=== PATIENT | male | born 1955 | race Caucasian/White ===

== ENCOUNTER 2018-11-13 12:50 | Outpatient (CLI) | payer MEDICAID, SELFPAY ==
[2018-11-13 12:53] VITALS: BP 140/90; PULSE 65; RESP 22; TEMP 36.6; O2SAT 97
--- NOTE | 2018-11-13 13:28 | PDOC.PAIN ---
Pain Clinic Procedure Note Current Active Problems Problem Status Onset Lumbosacral spondylosis without myelopathy Acute Lumbar/Sacral Medial Branch Blocks COLE GONZALES has been referred to the [facility] for lumbar/sacral medial branch blocks. COMMENTS: I did review the notes from Ms. Dash from 10/24/18. Pre-procedure pain level to the right low back was 9.5/10. Patient was interviewed and the medical record reviewed. There were no medical, pharmacologic, radiographic or other structural contraindications to attempting fluoroscopically guided local anesthetic lumbar/sacral medial branch blocks. Risks and expected side effects as well as potential benefit of the procedure were reviewed and voiced concerns addressed. The printed consent form was signed and witnessed. Standard time-out procedure was performed. Patient was placed in the prone position on the fluoroscopy table and automated blood pressure cuff and pulse oximeter applied. The skin entry points for approaching the anatomic target points of the segmental medial branches of right L3-L5DR were identified with fluoroscopy and marked. Following thorough Chlorhexadine preparation of the skin and draping and 1% lidocaine infiltration of the skin entry points and subcutaneous tissues, a 22 gauge spinal needle was placed under fluoroscopic guidance down on to the target point for each respective segmental medial branch.Position was confirmed in A/P, oblique and lateral views with 0.25ml of omnipaque. At this point 0.5ml of 0.5% Bupivacaine was injected to each segmental nerve. Vital signs were stable throughout the procedure and were as recorded in the docflowsheet by the nursing staff. Follow up plans and appointments were discussed and was instructed to keep careful note of how the usual pain was modified by these injections. Specifically was asked to keep a pain diary for the next 24 hours using a numeric pain scale of 0-10 and report these results at the follow-up visit. Post procedure instruction was given as documented in the nursing documentation and having met discharge criteria. Patient was discharged from the [facility]. Based on the medial branches blocked today, if the patient has adequate relief and we are able to proceed to radiofrequency ablation, the treatment should result in the denervation of the right L4-L5 and L5-S1 FACET JOINTS. We would expect to denervate a total of 2 facets during the radiofrequency ablation. COMMENTS:His post-procedure pain level to the right low back was 0/10. He will call back with his 1-4 hour post-procedure pain levels to the right side of the low back. CC: Papo Puri
--- NOTE | 2018-11-13 13:30 | DI.RAD_ITS ---
SYMPTOMS/DIAGNOSIS: LUMBAR SPONDYLOSIS PAIN CLINIC LUMBAR SPINE: Fluoroscopy Time: 38.1 sec 19.05 mGy Fluoroscopy was utilized by Dr. August during the performance of a lumbar medial branch block. Please refer to the procedure report for complete details.
[2018-11-13 13:42] VITALS: BP 159/90; PULSE 72; RESP 22; O2SAT 97
[2018-11-13] MEDS: Bupivacaine 0.5% Pres-Free 30 ML VIAL IJ (13:42)
[2018-11-13] MEDS: Omnipaque 240 MG/ML 50 ML BTL IJ (13:43)
== END 2018-11-13 13:10 ==
PROVIDERS: PCP Specialist/Technologist Athletic Trainer; Visit Provider Preventive Medicine Occupational Medicine
DX: M47.817 Spondylosis without myelopathy or radiculopathy, lumbosacral region (principal)
CPT/HCPCS: 64493; 64494; 72100; Q9967

== ENCOUNTER 2018-12-06 14:37 | Outpatient (REF) | payer MEDICAID, SELFPAY ==
[2018-12-06 22:03] LABS: HCT 43.1 % (40.0-50.0); HGB 14.4 g/dL (13.5-17.5)
[2018-12-06 22:27] LABS: Anion Gap 8.6 mmol/L (3-11); BUN 22 mg/dL (7-18); CO2 25.4 mmol/L (21.0-32.0); CREATININE 1.39 mg/dL (0.70-1.30); Calcium 9.4 mg/dL (8.5-10.1); Chloride 103 mmol/L (98-107); Cholesterol 137 mg/dL (50-200); Estimated GFR 51.61 (mL/min/1.73m2); Glucose 105 mg/dL (70-100); HDL Cholesterol 27 mg/dL (40-60); LDL CHOLESTEROL 65 mg/dL (<100); Potassium 4.4 mmol/L (3.5-5.1); Sodium 137 mmol/L (136-145); Triglyceride 466 mg/dL (30-150)
== END 2018-12-06 14:57 ==
LOC: NCHCN 14:37
PROVIDERS: PCP Specialist/Technologist Athletic Trainer; Visit Provider Specialist/Technologist Athletic Trainer
DX: I25.10 Atherosclerotic heart disease of native coronary artery without angina pectoris (principal); I10 Essential (primary) hypertension; E78.5 Hyperlipidemia, unspecified; Z51.81 Encounter for therapeutic drug level monitoring
CPT/HCPCS: 80048; 80061; 83721; 83735; 85014; 85018

== ENCOUNTER 2018-12-12 12:59 | Outpatient (CLI) | payer MEDICAID, SELFPAY ==
--- NOTE | 2018-12-12 06:00 | DI.RAD_ITS ---
SYMPTOM/DIAGNOSIS: LUMBAR SPONDYLOSIS PAIN CLINIC: Fluoroscopy Time: 29.8 SECONDS Fluoroscopy was utilized by Dr. Warren during the performance of a lumbar medial branch block. Please refer to the procedure report for complete details.
[2018-12-12 13:05] VITALS: BP 154/97; PULSE 71; RESP 22; TEMP 36.6; O2SAT 94
[2018-12-12] MEDS: Lidocaine 2% Pres-Free 5 ML VIAL IJ (13:42)
[2018-12-12] MEDS: Omnipaque 240 MG/ML 50 ML BTL IJ (13:42)
--- NOTE | 2018-12-12 13:42 | PDOC.PAIN ---
Pain Clinic Procedure Note Current Active Problems Problem Status Onset Lumbosacral spondylosis without myelopathy Acute Lumbar/Sacral Medial Branch Blocks COLE GONZALES has been referred to the [facility] for lumbar/sacral medial branch blocks. COMMENTS: The patient had good relief from first medial branch block with bupivacaine Patient was interviewed and the medical record reviewed. There were no medical, pharmacologic, radiographic or other structural contraindications to attempting fluoroscopically guided local anesthetic lumbar/sacral medial branch blocks. Risks and expected side effects as well as potential benefit of the procedure were reviewed and voiced concerns addressed. The printed consent form was signed and witnessed. Standard time-out procedure was performed. Patient was placed in the prone position on the fluoroscopy table and automated blood pressure cuff and pulse oximeter applied. The skin entry points for approaching the anatomic target points of the segmental medial branches of {right L3, 4, 5} were identified with an fluoroscopy and marked. Following thorough Chlorhexadine preparation of the skin and draping and 1% lidocaine infiltration of the skin entry points and subcutaneous tissues, a 5 inch22 gauge spinal needle was placed under fluoroscopic guidance down on to the target point for each respective segmental medial branch.Position was confirmed in A/P, oblique and lateral views with 0.25ml of omnipaque 240. At each point .5ml 2% lidocaine was injected. Vital signs were stable throughout the procedure and were as recorded in the docflowsheet by the nursing staff. Follow up plans and appointments were discussed and was instructed to keep careful note of how the usual pain was modified by these injections. Specifically was asked to keep a pain diary for the next 24 hours using a numeric pain scale of 0-10 and report these results at the follow-up visit. Post procedure instruction was given as documented in the nursing documentation and having met discharge criteria. Patient was discharged from the [facility]. Based on the medial branches blocked today, if the patient has adequate relief and we are able to proceed to radiofrequency ablation, the treatment should result in the denervation of the {right L4-5, L5-S1 FACET JOINTS}. We would expect to denervate a total of {2} facets during the radiofrequency ablation. COMMENTS:Pain went from 06/11-10/11. He will follow-up for radiofrequency ablation if he meets criteria. CC: Papo Puri
[2018-12-12 13:52] VITALS: BP 163/90; PULSE 74; RESP 20; O2SAT 96
== END 2018-12-12 13:19 ==
PROVIDERS: PCP Specialist/Technologist Athletic Trainer; Visit Provider Anesthesiology Pain Medicine
DX: M47.817 Spondylosis without myelopathy or radiculopathy, lumbosacral region (principal)
CPT/HCPCS: 64493; 64494; 64495; 72100; 80048; 80061; 83721; 83735; 85014; 85018; Q9967

== ENCOUNTER 2019-01-01 07:48 | Outpatient (CLI) | payer MEDICAID, SELFPAY ==
[2019-01-01 07:58] VITALS: BP 145/82; PULSE 60; RESP 22; TEMP 36.2; O2SAT 97
[2019-01-01] MEDS: Lactated Ringers 1,000 ML 80 ML IV (08:27)
[2019-01-01] MEDS: Midazolam 2 MG/2 ML VIAL IVP (08:30)
[2019-01-01] MEDS: fentaNYL 100 MCG/2 ML VIAL IVP (08:30)
[2019-01-01 08:54] VITALS: BP 152/84; PULSE 66; RESP 16; O2SAT 93
--- NOTE | 2019-01-01 08:57 | PDOC.PAIN ---
Pain Clinic Procedure Note Current Active Problems Problem Status Onset Lumbosacral spondylosis without myelopathy Acute LUMBAR/SACRAL MEDIAL BRANCH RADIOFREQUENCY WITH THE [employer] MACH[employer] COLE GONZALES has been referred to the [facility] for radiofrequency treatment of chronic axial back pain. COLE has had long standing back pain thought to be facet joint generated and which has been refractory to other therapies. Local anesthetic medial branch blocks or intra-articular facet joint injections resulted in COLE reporting reduction of the usual axial component of pain for at least the duration of the local anesthetic effect. COMMENTS: He did exceedingly well with the LMBBs Patient was interviewed and the medical record reviewed. There were no medical, pharmacologic, radiographic or other structural contraindications to attempting fluoroscopically guided radiofrequency treatment. Risks and expected side effects as well as potential benefit of the procedure were reviewed and voiced concerns addressed. The printed consent form was signed and witnessed. Standard time-out procedure was performed. Patient was placed in the prone position on the fluoroscopy table and automated blood pressure cuff and pulse oximeter applied. The skin entry points for approaching the anatomic target points of the segmental medial branches of right L3-S1 were identified with fluoroscopy and marked. Following thorough Chlorhexadine preparation of the skin and draping and 1% lidocaine infiltration of the skin entry points and subcutaneous tissues, a single 18 guage curved 10 cm 10mm active tip radiofrequency cannula was placed under fluoroscopic guidance along or across the anatomic course of each respective segmental medial branch. Each placement was stimulated at 50Hz and les then 0.5V for medial branch sensory localization and the at 2Hz and up to 3 times the sensory voltage without any evidence of distal myotomal stimulation. 1cc of 1% ;idocaine was injected at each site. At each placement a continuous mode radiofrequency treatment was done at 80 degrees C for 90secs. This radiofrequency treatment should result in the denervation of the right L4-L5 and L5-S1 FACET JOINTS}.~ A total of 2 facets were expected to be denervated from today's treatment. Vital signs were stable throughout the procedure and were as recorded in the docflowsheet by the nursing staff. If given, dosages of intravenous drugs for anxiolysis and analgesia were documented in the Medication Administration Record (MAR). Follow up plans and appointments were discussed. Post procedure instruction was given as documented in the nursing documentation and having met discharge criteria, COLE was discharged from the [facility]. COMMENTS: This can be repeated without the LMBBs if he gets at least 6 months of relief CC: Papo Puri
[2019-01-01] MEDS: methylPREDNISolone ACETATE 40 MG/ML VIAL IJ (09:09)
[2019-01-01] MEDS: Bupivacaine 0.5% Pres-Free 10 ML VIAL IJ (09:09)
[2019-01-01] MEDS: Lidocaine 2% Pres-Free 5 ML VIAL IJ (09:09)
--- NOTE | 2019-01-01 10:17 | DI.RAD_ITS ---
SYMPTOMS/DIAGNOSIS: LUMBAR SPONDYLOSIS PAIN CLINIC: Fluoroscopy Time: 49.9sec, 31.12mGY Images submitted from the pain clinic demonstrate needle positioning over the right side in the lower lumbar spine at L 4 - 5 in conjunction with an injection carried out by Dr. August. Please see the procedure report for further information.
== END 2019-01-01 08:08 ==
PROVIDERS: PCP Specialist/Technologist Athletic Trainer; Visit Provider Preventive Medicine Occupational Medicine
DX: M47.817 Spondylosis without myelopathy or radiculopathy, lumbosacral region (principal)
CPT/HCPCS: 64635; 64636; 72100; J1030; J2250; J3010

== ENCOUNTER 2019-05-23 12:41 | Outpatient (CLI) | payer MEDICAID, SELFPAY ==
[2019-05-23 12:48] VITALS: BP 151/88; PULSE 67; RESP 22; TEMP 37.1; O2SAT 96
[2019-05-23] MEDS: Omnipaque 240 MG/ML 50 ML BTL IJ (13:25)
[2019-05-23] MEDS: methylPREDNISolone ACETATE 40 MG/ML VIAL IM (13:26)
--- NOTE | 2019-05-23 13:32 | DI.RAD_ITS ---
SYMPTOMS/DIAGNOSIS: LUMBAR RADICULOPATHY PAIN CLINIC LUMBAR SPINE: Fluoroscopy Time: 29.8 sec., 19.56 mGy Fluoroscopy is utilized by Dr. August during the performance of a lumbar epidural steroid injection. Please refer to the procedure report for complete details.
[2019-05-23 13:33] VITALS: BP 179/85; PULSE 64; RESP 20; O2SAT 96
--- NOTE | 2019-05-23 13:36 | PDOC.PAIN ---
Pain Clinic Procedure Note Current Active Problems Problem Status Onset Lumbosacral radiculopathy Lumbar Epidural Steroid Injection Procedure Note COMMENTS: Right sided low back and leg pain. I reviewed the previous notes and his most recent lumbar spine MRI. COLE GONZALES has been referred to the [facility] for lumbar epidural steroid injection. The patient was greeted by the nurse who verified patients name and . Patient was then taken to the fluoroscopy suite. The patient was interviewed and the medial record reviewed. There were no medical, pharmacologic, radiographic, or other structural contraindications to attempting fluoroscopically guided lumbar epidural steroid injection. Risks and expected side effects as well as potential benefits of the procedure were reviewed and voiced concerns expressed. The patient consent form was signed and witnessed. Standard patient time-out procedure was performed. The patient was placed in the prone position on the fluoroscopy table and automated blood pressure cuff and pulse oximeter applied. The skin entry point for entering/approaching the epidural space at the right side of the L4-L5 interspace and marked. Following thorough chlorhexadine preparation of the skin and draping and 1% lidocaine infiltration of the skin entry point and subcutaneous tissues, a 18 gauge Touhy needle was placed under fluoroscopic guidance and with loss of resistance technique into the epidural space. Needle tip placement and depth were aided and confirmed by fluoroscopy. There was no paresthesia or return of blood or CSF through the needle. 1 cc's of Omnipaque 240 was injected with clear epidural spread confirmed with fluoroscopy. 80mg depomedrol was injected. There was not any unusual discomfort expressed by COLE GONZALES. Patient's vital signs were stable throughout the procedure and were as recorded in nursing records. Follow up plans and appointments were discussed with patient. Post procedure instruction was given as documented in nursing records and having met discharge criteria and was discharged from the [facility]. COMMENTS: If this procedure is helpful, it can be completed up to 3 times per 12 months.
== END 2019-05-23 13:01 ==
PROVIDERS: PCP Specialist/Technologist Athletic Trainer; Visit Provider Preventive Medicine Occupational Medicine
DX: M54.17 Radiculopathy, lumbosacral region (principal)
CPT/HCPCS: 62323; 72100; J1030; Q9967

== ENCOUNTER 2019-05-29 02:03 | Outpatient (CLI) | payer MEDICAID, SELFPAY ==
--- NOTE | 2019-05-29 13:20 | DIABASSESS_ITS ---
DESCRIPTION/ASSESSMENT: Bala Lemus presents for weight management in light of newly diagnosed type 2 diabetes with his who prepares the meals. He shops with her and is highly involved in food purchasing. Mr. Lemus reports a weight gain of 30 pounds over the past 2.5 years. He loves his candy and chips and believes he over consumed them along with decreasing his physical activity secondary to shoulder and back pain. He loves pasta and dislikes 'cow food' i.e. greens. Since seeing his provider, he has started eating fish in place of some beef. He has eggs, sausage and home fries for breakfast; muffin with coffee and has cut his portions 'dramatically'; he often skips lunch. Last night he had chicken patties and potato salad. He can list a few vegetables he will eat, and he likes fruit. His voices support for his cutting back on bread, pasta and sweets, but he challenges her on this. Mr. Lemus is not physically active secondary to his back and shoulder. He has been receiving steroid shots for his back. He feels it is getting better but has difficulty walking. He feels ready to go back to work despite not being 100%. He manages diabetes with Metformin 500mg daily and has blood pressure medication and aspirin. INTERVENTION: Mr. Lemus has been watching Dr. Winston and is finding some helpful information there. Reviewed diabetes food guide to offer options to decrease calories and carbohydrate to improve glycemic control. Discussed low salt for blood pressure. Discussed ways to increase the vegetables he likes. He declines a glucometer today stating he will never prick his finger. Discussed physical activity as a part of weight management diabetes. ACTION PLAN: He will consider increasing non-carbohydrate choices. He will explore cardiac rehab for physical exercise Individual MNT ____ units billed TIME IN: OUT: No DM group education series being offered at this time.
== END 2019-05-29 02:23 ==
PROVIDERS: PCP Specialist/Technologist Athletic Trainer; Visit Provider Dietitian, Registered
DX: E11.9 Type 2 diabetes mellitus without complications (principal); Z71.3 Dietary counseling and surveillance; Z79.84 Long term (current) use of oral hypoglycemic drugs; E66.8 Other obesity
CPT/HCPCS: 97802

== ENCOUNTER 2019-09-17 12:25 | Outpatient (RCR) | payer SELFPAY ==
--- NOTE | 2019-09-03 11:21 | PR3E_ITS ---
64 year old male who started the Cardiac Rehab maintenance phase after cardiology referral for cardiac risks. PMH: [place] (July 2016), HTN, HLD, ASCVD, Obesity, former smoker quit 2015, gastric ulcer, chronic back pain. First day of maintenance program was 09/03/19- Resting BP 140/81 w/ HR 76 bpm. Weight 273, HT 68in. Tolerated 14 minutes of exercise using the treadmill, and UBE. Chronic back pain limits duration of activity. HR with exercise ranged 75- 78, BPs 154-169/86-95. SOL RPE ratings appropriate at 11 per activity. Mr. Lemus plans to continue exercising regularly with our program, two days per week at 8am. We will continue to monitor, guide, and progress him as tolerated.
== END 2019-10-01 23:59 | disposition home or self-care (01) ==
LOC: CR 12:25
PROVIDERS: PCP Specialist/Technologist Athletic Trainer; Visit Provider Family Medicine
DX: Z51.89 Encounter for other specified aftercare (principal)

== ENCOUNTER 2019-10-01 13:41 | Outpatient (CLI) | payer MEDICAID, SELFPAY ==
[2019-10-01 13:48] VITALS: BP 131/81; PULSE 78; RESP 24; TEMP 36.8; O2SAT 94
[2019-10-01 14:31] VITALS: BP 138/85; PULSE 79; RESP 22; O2SAT 92
--- NOTE | 2019-10-01 14:35 | PDOC.PAIN ---
Pain Clinic Procedure Note Procedure Note Procedure Note: Lumbar Epidural Steroid Injection Procedure Note pre-operative diagnosis: lumbar radiculopathy post-operative diagnosis: same as above Comment: patient received L4-5 LESI in the past that helped relieve his right leg pain. Today, he reports back and left leg pain that is affecting posterior left calf. He returns for repeat LESI. COLE GONZALES has been referred to the [facility] for lumbar epidural steroid injection. The patient was greeted by the nurse who verified patients name and . Patient was then taken to the fluoroscopy suite. The patient was interviewed and the medial record reviewed. There were no medical, pharmacologic, radiographic, or other structural contraindications to attempting fluoroscopically guided lumbar epidural steroid injection. Risks and expected side effects as well as potential benefits of the procedure were reviewed and voiced concerns expressed. The patient consent form was signed and witnessed. Standard patient time-out procedure was performed. The patient was placed in the prone position on the fluoroscopy table and automated blood pressure cuff and pulse oximeter applied. The skin entry point for entering/approaching the epidural space by a L5-S1 and marked. Following thorough chlorhexadine preparation of the skin and draping and 1% lidocaine infiltration of the skin entry point and subcutaneous tissues, a 17 gauge 5'' Touhy needle (due to body habitus) was placed under fluoroscopic guidance and with loss of resistance technique into the epidural space. Needle tip placement and depth were aided and confirmed by fluoroscopy. There was no paresthesia or return of blood or CSF through the needle. 2 cc's of Omnipaque 240 was injected with clear epidural spread confirmed with fluoroscopy. 80mg depomedrol was injected. Then additional 0.5cc of preservative free 1% lidocaine and 2cc of preservative free normal saline was injected to flush the steroid out of the Touhy needle. There was not any unusual discomfort expressed by COLE GONZALES. Patient's vital signs were stable throughout the procedure and were as recorded in nursing records. Follow up plans and appointments were discussed with patient. Post procedure instruction was given as documented in nursing records and having met discharge criteria and was discharged from the [facility]. COMMENTS: If this procedure is helpful, it can be completed up to 3 times per 12 months. L5-S1 with left paramedian approach was chosen today due to patient's left posterior calf and leg pain. I personally performed the entire procedure. Mary Narayanan MD Pain Management
[2019-10-01] MEDS: methylPREDNISolone ACETATE 80 MG/ML VIAL IJ (14:40)
[2019-10-01] MEDS: Omnipaque 240 MG/ML 50 ML BTL IJ (14:40)
--- NOTE | 2019-10-01 14:40 | DI.RAD_ITS ---
EXAM: XR PAIN CLINIC LUMBAR SP 2V CLINICAL HISTORY: Dx: Lumbar Radiculopathy TECHNIQUE: C-arm fluoroscopy was utilized by Dr. Narayanan during lumbar epidural injection. COMPARISON: No exams were available for comparison FINDINGS: Hard copies show epidural injection at what appears to be the L5-S1 level. 61.9 seconds fluoro time.
== END 2019-10-01 14:01 ==
PROVIDERS: PCP Specialist/Technologist Athletic Trainer; Visit Provider Internal Medicine
DX: M54.16 Radiculopathy, lumbar region (principal)
CPT/HCPCS: 62323; 72100; J1040; Q9967

== ENCOUNTER 2019-10-02 04:22 | Outpatient (RCR) | payer SELFPAY | END 2019-11-01 23:59 | disposition home or self-care (01) | LOC: CR 04:22 | PROVIDERS: PCP Specialist/Technologist Athletic Trainer; Visit Provider Family Medicine | DX: Z51.89 Encounter for other specified aftercare (principal) ==

== ENCOUNTER 2019-11-02 04:07 | Outpatient (RCR) | payer SELFPAY ==
--- NOTE | 2019-11-28 11:11 | PR3E_ITS ---
64 year old male joined the maintenance phase of cardiac rehabilitation on September 03, 2019 after being referred for cardiac history/risk factors: [place] 2016, HTN, ASCVD, obesity. The patient attended 5 classes in September. The patient is being discharged from the program at this time due to ongoing medical issues; back pain. Will assist patient in re-enrolling in the program and obtaining proper referrals in the future should he want to return.
== END 2019-11-30 23:59 | disposition home or self-care (01) ==
LOC: CR 04:07
PROVIDERS: PCP Specialist/Technologist Athletic Trainer; Visit Provider Family Medicine
DX: Z51.89 Encounter for other specified aftercare (principal)

== ENCOUNTER 2019-12-20 10:56 | Outpatient (REF) | payer MEDICAID, SELFPAY ==
[2019-12-20 18:57] LABS: Anion Gap 10.3 mmol/L (3-11); BUN 17 mg/dL (7-18); CO2 24.7 mmol/L (21.0-32.0); CREATININE 1.21 mg/dL (0.70-1.30); Calcium 9.5 mg/dL (8.5-10.1); Calculated LDL 47 mg/dL (<100); Chloride 103 mmol/L (98-107); Cholesterol 121 mg/dL (<200); Glucose 110 mg/dL (74-106); HDL Cholesterol 27 mg/dL (40-60); Potassium 4.9 mmol/L (3.5-5.1); Sodium 138 mmol/L (136-145); Triglyceride 238 mg/dL (<150)
== END 2019-12-20 11:16 ==
LOC: NCHCN 10:56
PROVIDERS: PCP Nurse Practitioner Family; Visit Provider Nurse Practitioner Family
DX: R73.09 Other abnormal glucose (principal); I10 Essential (primary) hypertension; E78.5 Hyperlipidemia, unspecified; I25.2 Old myocardial infarction
CPT/HCPCS: 80048; 80061

== ENCOUNTER 2020-03-06 01:25 | Outpatient (CLI) | payer MEDICAID, SELFPAY ==
--- NOTE | 2020-03-06 | DI.CTLCSR_ITS ---
EXAM: CT CHEST LUNG CANCER SCREEN CLINICAL HISTORY: SCREENING FOR CANCER, Z12.9, FORMER SMOKER TECHNIQUE: COMPARISON: No exams were available for comparison FINDINGS: CT examination the chest was performed utilizing low-dose non contrast screening protocol. Images obtained through the upper abdomen show unremarkable appearance of visualized portions of the liver and spleen. Note is made of coronary artery calcifications. No mediastinal or hilar adenopathy. Tracheobronchia l tree appears intact. There are mild diffuse centrilobular pulmonary emphysematous changes. No pulmonary nodule identified . Mild linear scarring noted predominantly in the lung bases. No pleural effusion seen. IMPRESSION: Negative LDCT, no pulmonary nodule identified. Routine annual screening recommended. Lung RADS Cat 1 - Negative: No nodules and definitely benign nodules
== END 2020-03-06 01:45 ==
PROVIDERS: PCP Nurse Practitioner Family; Visit Provider Nurse Practitioner Family
DX: Z12.2 Encounter for screening for malignant neoplasm of respiratory organs (principal); Z87.891 Personal history of nicotine dependence; J43.8 Other emphysema
CPT/HCPCS: G0297

== ENCOUNTER 2020-03-31 12:43 | Outpatient (CLI) | payer MEDICAID, SELFPAY ==
[2020-03-31 12:53] VITALS: BP 137/74; PULSE 73; RESP 20; TEMP 36.4; O2SAT 95
--- NOTE | 2020-03-31 12:53 | PDOC.PAIN ---
Pain Clinic Procedure Note Procedure Note Procedure Note: Lumbar Epidural Steroid Injection Procedure Note COMMENTS: patient underwent L4-[address] August in the past which provided 100% pain relief lasting a couple of weeks followed by 80% of 2 months. His most recent injection was L5-S1 LESI based on symptomatology, which unfortunately did not result in any significant pain relief. He is here for a repeat L4-5 LESI. Pre-operative diagnosis: lumbar radiculopathy Post-operative diagnosis: same as above COLE GONZALES has been referred to the [facility] for lumbar epidural steroid injection. The patient was greeted by the nurse who verified patients name and . Patient was then taken to the fluoroscopy suite. The patient was interviewed and the medial record reviewed. There were no medical, pharmacologic, radiographic, or other structural contraindications to attempting fluoroscopically guided lumbar epidural steroid injection. Risks and expected side effects as well as potential benefits of the procedure were reviewed and voiced concerns expressed. The patient consent form was signed and witnessed. Standard patient time-out procedure was performed. The patient was placed in the prone position on the fluoroscopy table and automated blood pressure cuff and pulse oximeter applied. The skin entry point for entering/approaching the epidural space by a L4-5 and marked. Following thorough chlorhexadine preparation of the skin and draping and 1% lidocaine infiltration of the skin entry point and subcutaneous tissues, a 17 gauge 5'' Touhy needle was placed under fluoroscopic guidance and with loss of resistance technique into the epidural space. Needle tip placement and depth were aided and confirmed by fluoroscopy. There was no paresthesia or return of blood or CSF through the needle. 1 cc's of Omnipaque 240 was injected with clear epidural spread confirmed with fluoroscopy. 80mg depomedrol was injected. This is followed by 0.5cc of preservative free 1% lidocaine and 1cc of preservative free normal saline. There was not any unusual discomfort expressed by COLE GONZALES. Patient's vital signs were stable throughout the procedure and were as recorded in nursing records. Follow up plans and appointments were discussed with patient. Post procedure instruction was given as documented in nursing records and having met discharge criteria and was discharged from the [facility] Management Center. COMMENTS: If this procedure is helpful, it can be completed up to 3 times per 12 months. please note patient has thickened ligamentum flavun at L4-5 interspace. Due to patient's body habitus, a 17 gauge 5'' Touhy needle was used. I personally performed the entire procedure. Mary Narayanan MD Pain Management
[2020-03-31] MEDS: methylPREDNISolone ACETATE 80 MG/ML VIAL IJ (13:21)
[2020-03-31] MEDS: Omnipaque 240 MG/ML 50 ML BTL IJ (13:21)
[2020-03-31 13:27] VITALS: BP 155/84; PULSE 75; RESP 17; O2SAT 97
--- NOTE | 2020-03-31 13:28 | DI.RAD_ITS ---
EXAM: XR PAIN CLINIC LUMBAR SP 2V CLINICAL HISTORY: Dx: Lumbar Radiculopathy TECHNIQUE: 2D and realtime digital imaging was performed. CONTRAST MATERIAL: Refer to procedure report. COMPARISON: No exams were available for comparison FINDINGS: Fluoroscopy was provided for Dr. Narayanan during the performance of a epidural lumbar injection. Please r efer to the procedure report for complete details. Fluoro time: 37.8 seconds IMPRESSION:
== END 2020-03-31 13:03 ==
PROVIDERS: PCP Nurse Practitioner Family; Visit Provider Internal Medicine
DX: M54.16 Radiculopathy, lumbar region (principal)
CPT/HCPCS: 62323; 72100; J1040; Q9967

== ENCOUNTER 2020-08-11 09:47 | Outpatient (REF) | payer MEDICAID, SELFPAY ==
[2020-08-11 19:41] LABS: Anion Gap 11.2 mmol/L (3-11); BUN 15 mg/dL (7-18); CO2 23.8 mmol/L (21.0-32.0); CREATININE 1.27 mg/dL (0.70-1.30); Calcium 9.4 mg/dL (8.5-10.1); Chloride 105 mmol/L (98-107); Estimated GFR 56.92 (mL/min/1.73m2); Glucose 131 mg/dL (74-106); Potassium 4.6 mmol/L (3.5-5.1); Sodium 140 mmol/L (136-145)
== END 2020-08-11 10:07 ==
LOC: NCHCN 09:47
PROVIDERS: PCP Nurse Practitioner Family; Visit Provider Nurse Practitioner Family
DX: Z00.00 Encounter for general adult medical examination without abnormal findings (principal); E11.9 Type 2 diabetes mellitus without complications
CPT/HCPCS: 80048

== ENCOUNTER 2020-10-28 14:23 | Outpatient (REF) | payer MEDICAID, SELFPAY ==
[2020-10-28 21:12] LABS: ALT 60 U/L (16-63); AST 47 U/L (15-37); Calculated LDL 47 mg/dL (<100); Cholesterol 140 mg/dL (<200); HDL Cholesterol 29 mg/dL (40-60); Triglyceride 320 mg/dL (<150)
[2020-10-28 21:22] LABS: Creatine Kinase 136 U/L (39-308)
== END 2020-10-28 14:43 ==
LOC: NCHCN 14:23
PROVIDERS: PCP Nurse Practitioner Family; Visit Provider Nurse Practitioner Family
DX: E78.5 Hyperlipidemia, unspecified (principal)
CPT/HCPCS: 80061; 82550; 84450; 84460

== ENCOUNTER 2020-11-18 10:20 | Outpatient (REF) | payer MEDICAID, SELFPAY ==
[2020-11-18 16:10] LABS: HCT 42.1 % (40.0-50.0); MCH 28.9 pg (27.0-33.0); MCHC 33.3 % (32.0-36.0); MPV 11.7 fL (8.0-11.0); Platelet Count 196 10^3/uL (130-400); RBC 4.84 10^6/uL (4.36-5.78); RDW 13.2 % (11.8-14.1); RDW-SD 41.6 fL; WBC 6.33 10^3/uL (4.4-10.8)
[2020-11-18 16:20] LABS: Anion Gap 13.2 mmol/L (3-11); BUN 18 mg/dL (7-18); CO2 21.8 mmol/L (21.0-32.0); CREATININE 1.1 mg/dL (0.70-1.30); Calcium 9.4 mg/dL (8.5-10.1); Chloride 104 mmol/L (98-107); Glucose 131 mg/dL (74-106); Potassium 4.7 mmol/L (3.5-5.1); Sodium 139 mmol/L (136-145)
[2020-11-18 16:41] LABS: Hemoglobin A1C 7.3 % (<5.7)
== END 2020-11-18 10:21 | disposition home or self-care (01) ==
LOC: NCHCN 10:20
PROVIDERS: PCP Nurse Practitioner Family; Visit Provider Nurse Practitioner Family
DX: E11.9 Type 2 diabetes mellitus without complications (principal); Z01.818 Encounter for other preprocedural examination; I10 Essential (primary) hypertension
CPT/HCPCS: 80048; 85027; 83036

== ENCOUNTER 2020-12-30 02:58 | Outpatient (CLI) | payer MEDICAID, SELFPAY ==
[2020-12-30 10:40] LABS: Source Nasal/Nares
[2020-12-30 14:53] LABS: COVID-19 PCR Negative (Negative)
== END 2020-12-30 02:59 | disposition home or self-care (01) ==
LOC: LBO 02:58
PROVIDERS: PCP Nurse Practitioner Family; Visit Provider Family Medicine
DX: Z20.822 Contact with and (suspected) exposure to COVID-19 (principal); Z01.818 Encounter for other preprocedural examination
CPT/HCPCS: 87635

== ENCOUNTER 2020-12-31 03:31 | Outpatient (CLI) | payer MEDICARE, MEDICAID, SELFPAY ==
[2020-12-31] MEDS: Methacholine 100 MG VIAL IH (15:15)
[2020-12-31] MEDS: Inhaler, Assist Device 1 EACH MC (15:16)
[2020-12-31] MEDS: Albuterol HFA 18 GM 200 PUFF INH IH (15:16)
--- NOTE | 2021-01-04 09:00 | W.PFT ---
Date of service: 12/31/20 Time of Service: 01:10 Pulmonary Function Test Result Interpretation Spirometry: Mild obstructive airways disease, no bronchodilator testing was carried out Lung Volumes: No evidence of restriction Diffusion Capacity: Moderately reduced, mildly reduced when corrected to alveolar volume Airway Pressure: Normal Impression Mild obstructive airways disease, no bronchodilator testing was carried out, this is associated with moderate diffusion defect Clinical Correlation therefore is recommended.
== END 2020-12-31 03:32 | disposition home or self-care (01) ==
PROVIDERS: PCP Nurse Practitioner Family; Visit Provider Nurse Practitioner Family
DX: J44.9 Chronic obstructive pulmonary disease, unspecified (principal); R06.09 Other forms of dyspnea; Z87.891 Personal history of nicotine dependence
CPT/HCPCS: 94060; 94726; 94729; 95070; 94010; J7674

== ENCOUNTER 2021-05-26 16:41 | Outpatient (REF) | payer MEDICARE, MEDICAID, SELFPAY ==
[2021-05-26 22:48] LABS: D-Dimer 2649 ng/mlFEU (<500)
== END 2021-05-26 16:42 | disposition home or self-care (01) ==
LOC: NCHCN 16:41
PROVIDERS: PCP Nurse Practitioner Family; Visit Provider Nurse Practitioner Family
DX: M25.561 Pain in right knee (principal); R22.41 Localized swelling, mass and lump, right lower limb; M79.89 Other specified soft tissue disorders
CPT/HCPCS: 85379

== ENCOUNTER 2021-08-11 01:06 | Outpatient (CLI) | payer MEDICARE, MEDICAID, SELFPAY ==
--- NOTE | 2021-08-11 10:45 | DI.MRI_ITS ---
Exam(s) MR LOWER JOINT RT WO EXAM: MR LOWER JOINT RT WO CLINICAL HISTORY: RT KNEE PAIN M25.561 TECHNIQUE: Multiplanar multisequence MRI of the right knee was performed. COMPARISON: No exams were available for comparison FINDINGS: EFFUSION: There is a large joint effusion. There is also a Schafer cyst in the medial popliteal fossa which measures approximately 6 cm cephalocaudal length by 1 cm wide and is probably ruptured given th at there is some fluid leakage down the medial aspect of the gastrocnemius muscle. MARROW:There is no evidence of fracture. Some bone contusion signal is evident in the medial compart ment as as described below.. There are no significant osseous lesions. PATELLOFEMORAL COMPARTMENT: Quadriceps tendon is intact. Mild increased signal is noted in the infer ior aspect of the patellar ligament but no high-grade tear. Mild subcutaneous edema is seen anterior to the patellar ligament. There is a surface defect at the mid aspect of the retropatellar cartilage which measures 8 millimete rs wide by 1 millimeter deep. This does not extend through the entire thickness of the cartilage, th e thickness of the cartilage being 5-6 millimeters at this level. Remainder of the cartilage appears unremarkable.No abnormal intraosseous signal in the patella. No degenerative subarticular cysts. N o patellar retinacular tears. No intraosseous signal to suggest recent patellar dislocation. CRUCIATE LIGAMENTS: The anterior cruciate ligament is intact.The posterior cruciate ligament is intac t. MEDIAL COMPARTMENT/MEDIAL MENISCUS: There is complex tear of the posterior horn of the medial meniscu s. There is both oblique and vertical tearing in the outer 3rd. Also tearing 1.5 cm in from the wilbert t with significant thinning at this level. There is some extrusion of the posterior horn but not joshua cent into the para tibial gutter.The anterior horn appears intact but mild extrusion.. There is subjacent mild bone edema in the tibial plateau and overlying medial femoral condyle (outer half). There is moderate cartilage thinning over this region of the medial femoral condyle. No true osteochondral defect. MEDIAL COLLATERAL LIGAMENT: There is abnormal signal seen within the inner-deep component of the MCL immediately contiguous to the torn meniscus. The more superficial-outer aspect of the MCL is intact. There is a small amount of fluid in the bursa between the 2 components of the MCL. LATERAL COMPARTMENT/LATERAL MENISCUS: There is no evidence of lateral meniscal tear.There are no rogers dral defects, osteochondral defects, subarticular marrow edema, nor osteophytes evident. ILIOTIBIAL BAND: Intact LATERAL COLLATERAL LIGAMENT COMPLEX: The fibular collateral ligament is intact. The biceps femoris t endon is intact.Popliteus muscle and tendon are intact. IMPRESSION: 1. There is a complex tear of the posterior horn of the medial meniscus as described above. This ext ends towards but does not appear to significantly involve the anterior horn. There is some extrusion of the torn component of the posterior horn but no descent into the para tibial gutter. There is no meniscocapsular separation although there does appear to be some signal abnormality in the contiguou s deeper component of the MCL (the superficial component of the MCL is unremarkable). There is mild- moderate cartilage change room attendant the main weight-bearing surface of the medial femoral condyle and mild subarticular intraosseous edema at this level. However, there is no true osteochondral defect. 2. Lateral compartment appears unremarkable. 3. Anterior posterior cruciate ligaments are intact, as is the iliotibial band and lateral collateral ligament complex. 4. There is a surface irregularity in retropatellar cartilage which is approximately 1 millimeter leobardo p an 8 millimeters wide, not extending through the 5 millimeter thickness of the retropatellar cartil age and not associated with abnormal signal in the patella. 5. There is a joint effusion and there is also a Schafer cyst as described above which is partially ru ptured, with some fluid leakage down the medial head gastrocnemius muscle. DATA REPOSITORY:
== END 2021-08-11 01:26 ==
PROVIDERS: PCP Nurse Practitioner Family; Visit Provider Nurse Practitioner Family
DX: M25.561 Pain in right knee (principal); M25.461 Effusion, right knee; M71.21 Synovial cyst of popliteal space [Baker], right knee; S83.241A Other tear of medial meniscus, current injury, right knee, initial encounter
CPT/HCPCS: 73721

== ENCOUNTER 2021-08-24 08:43 | Outpatient (CLI) | payer MEDICARE, MEDICAID, SELFPAY ==
--- NOTE | 2021-08-24 08:30 | DI.RAD_ITS ---
Exam(s) XR KNEE RT 3V AP,LAT,POLI EXAM: XR KNEE RT 3V AP,LAT,POLI CLINICAL HISTORY: right knee tear TECHNIQUE: COMPARISON: No exams were available for comparison FINDINGS: Three views were obtained. There appears to be mild narrowing of the cartilaginous joint space media l tibial femoral joint. Otherwise cartilaginous joint spaces are well maintained. No bony abnormali ty seen. Small joint effusion appears to be present. IMPRESSION: RADIATION DOSE DELIVERED: Total DLP
== END 2021-08-24 08:44 | disposition home or self-care (01) ==
LOC: DIORS 08:43
PROVIDERS: PCP Nurse Practitioner Family; Referring Provider Nurse Practitioner Family; Visit Provider Student in an Organized Health Care Education/Training Program
DX: S83.241A Other tear of medial meniscus, current injury, right knee, initial encounter (principal); X50.9XXA Other and unspecified overexertion or strenuous movements or postures, initial encounter; J44.9 Chronic obstructive pulmonary disease, unspecified
CPT/HCPCS: 73562; 99204; 99214

== ENCOUNTER 2021-09-06 13:51 | Outpatient (REF) | payer MEDICARE, MEDICAID, SELFPAY ==
[2021-09-06 19:33] LABS: HCT 43.6 % (40.0-50.0); HGB 14.2 g/dL (13.5-17.5); MCH 28.2 pg (27.0-33.0); MCHC 32.6 % (32.0-36.0); MCV 86.7 fL (80-95); MPV 11.3 fL (8.0-11.0); Platelet Count 218 10^3/uL (130-400); RBC 5.03 10^6/uL (4.36-5.78); RDW 13.2 % (11.8-14.1); WBC 7.79 10^3/uL (4.4-10.8)
[2021-09-06 19:59] LABS: ALT 59 U/L (16-63); AST 58 U/L (15-37); Anion Gap 10.7 mmol/L (3-11); BUN 14 mg/dL (7-18); CO2 26.3 mmol/L (21.0-32.0); CREATININE 1.2 mg/dL (0.70-1.30); Calcium 9.8 mg/dL (8.5-10.1); Chloride 102 mmol/L (98-107); Glucose 98 mg/dL (74-106); HDL Cholesterol 27 mg/dL (40-60); LDL CHOLESTEROL 61 mg/dL (<100); Potassium 4.5 mmol/L (3.5-5.1); Sodium 139 mmol/L (136-145)
[2021-09-06 20:35] LABS: Hemoglobin A1C 6.5 % (<5.7)
[2021-09-06 20:36] LABS: Creatine Kinase 161 U/L (39-308)
== END 2021-09-06 13:52 | disposition home or self-care (01) ==
LOC: NCHCN 13:51
PROVIDERS: PCP Nurse Practitioner Family; Visit Provider Nurse Practitioner Family
DX: E11.9 Type 2 diabetes mellitus without complications (principal); Z01.818 Encounter for other preprocedural examination; I10 Essential (primary) hypertension
CPT/HCPCS: 80048; 82550; 83721; 85027; 83036; 83718; 84450; 84460

== ENCOUNTER 2021-09-07 00:58 | Outpatient (CLI) | payer MEDICARE, MEDICAID, SELFPAY ==
[2021-09-07 11:07] LABS: Source Nasal/Nares
[2021-09-07 14:15] LABS: COVID-19 PCR Negative (Negative)
== END 2021-09-07 00:59 | disposition home or self-care (01) ==
LOC: LBO 00:58
PROVIDERS: Student in an Organized Health Care Education/Training Program; PCP Nurse Practitioner Family; Visit Provider Student in an Organized Health Care Education/Training Program
DX: Z20.822 Contact with and (suspected) exposure to COVID-19 (principal)
CPT/HCPCS: 87635

== ENCOUNTER 2021-09-09 11:00 | Day surgery (SDC) | payer MEDICARE, MEDICAID, SELFPAY ==
[2021-09-09] VITALS (8 sets, daily range): BP systolic 137–151; BP diastolic 63–80; PULSE 63–75; RESP 13–22; TEMP 36.2–36.4; O2SAT 92–98; BMI 41.1
--- NOTE | 2021-09-09 11:51 | W.ANESPRE ---
General Info Date of Service Date Performed: 09/09/21 Height: 5 ft 8 in Weight: 122.8 kg Body Mass Index (BMI): 41.1 Surgical Procedure: Operation Date: 09/09/21 13:10 Proposed Procedures Side Surgeon p Knee Arthroscopy,meniscal,chondral,synovial and manipulation Right Nic Roger MD Meds Allergies and Home Medications Allergies Allergy/AdvReac Type Severity Reaction Status Date / Time No Known Allergies Allergy Verified 09/07/21 14:27 Home Medication Medication Instructions Recorded aspirin 81 mg PO DAILY tab-cap 05/02/18 atorvastatin 80 mg PO DAILY tab-cap 05/02/18 fluticasone propionate [Flovent 220 mcg INHALATION BID inhaler 05/02/18 220mcg] lisinopril 40 mg PO DAILY tab-cap 05/02/18 metoprolol succinate 100 mg PO DAILY tab-cap 05/02/18 metformin 500 mg PO QAM 12/12/18 amlodipine 5 mg tablet 5 mg PO DAILY #90 tab 08/15/19 nitroglycerin 0.4 mg sublingual 0.4 mg SUBLINGUAL ONCE #90 tab-cap 08/15/19 tablet Current Visit Medications: Current Medications Generic Name Dose Route Start Last Admin Trade Name Freq PRN Reason Stop Dose Admin Ringer's Solution 1,000 mls @ 100 mls/hr 09/09/21 06:00 IV 10/08/21 23:59 INFUSION SHERMAN Cefazolin Sodium 3,000 mg/ 100 mls @ 200 mls/hr 09/09/21 06:00 Sodium Chloride IVPB 09/09/21 16:00 PREOP SHERMAN IV Miscellaneous Supplies 1 each 09/09/21 06:00 Iv Access IV 10/08/21 23:59 DIRECTED SHERMAN Sodium Chloride 0 ml 09/09/21 06:00 Normal Saline Flush 10 Ml Syr IV 10/08/21 23:59 PRN PRN Sodium Chloride 0 ml 09/09/21 06:00 Normal Saline 10 Ml Vial IJ 10/08/21 23:59 DIRECTED PRN Sterile Water 0 ml 09/09/21 06:00 Water,Injection,Sterile 10 Ml Vial IJ 10/08/21 23:59 DIRECTED PRN PFSH Active Problems Active Problems: Problem Status Onset Code Angina effort I20.8 Coronary atherosclerosis I25.10 Hypertension I10 Hyperlipidemia E78.5 Unstable angina I20.0 UTI (urinary tract infection) N39.0 Lumbosacral spondylosis without myelopathy M47.817 Lumbosacral radiculopathy M54.17 Acute medial meniscus tear of right knee ~04/2021 S83.241A Arthrofibrosis of knee joint M24.669 Medical History Medical History (Updated 09/09/21 @ 11:10 by Estevan Bowles) Back pain with history of spinal surgery CAD (coronary artery disease) COPD (chronic obstructive pulmonary disease) Diabetes mellitus Former smoker History of angina HTN (hypertension) Hx of gastric ulcer Hx of non-ST elevation myocardial infarction (NSTEMI) Hyperlipidemia Laceration of finger Low back pain Sleep disorder Surgical History Surgical History (Updated 09/09/21 @ 11:10 by Estevan Bowles) Rotator cuff arthropathy of right shoulder Tobacco Smoking/Tobacco Use Status: Former Tobacco Use Tobacco: How many years used: 30 Alcohol Alcohol Intake: never Substance Use Substance use: Never Substance use type: does not use Vital Signs and Lab Results Vital Signs Most Recent Vital Signs in EMR: Most Recent Vital Signs Temp Pulse Resp BP Pulse Ox 36.3 C L 75 18 141/80 H 98 09/09/21 11:16 09/09/21 11:16 09/09/21 11:16 09/09/21 11:16 09/09/21 11:16 Lab Results Blood Type / Crossmatch: No Data to Display Complete Blood Count: White Blood Count 7.79 10^3/uL (4.4-10.8) 09/06/21 13:15 09/06/21 Red Blood Count 5.03 10^6/uL (4.36-5.78) 09/06/21 13:15 09/06/21 Hemoglobin 14.2 g/dL (13.5-17.5) 09/06/21 13:15 09/06/21 Hematocrit 43.6 % (40.0-50.0) 09/06/21 13:15 09/06/21 Platelet Count 218 10^3/uL (130-400) 09/06/21 13:15 09/06/21 Complete Metabolic Panel: Sodium Level 139 mmol/L (136-145) 09/06/21 13:15 09/06/21 Potassium Level 4.5 mmol/L (3.5-5.1) 09/06/21 13:15 09/06/21 Chloride Level 102 mmol/L (98-107) 09/06/21 13:15 09/06/21 Carbon Dioxide Level 26.3 mmol/L (21.0-32.0) 09/06/21 13:15 09/06/21 Blood Urea Nitrogen 14 mg/dL (7-18) 09/06/21 13:15 09/06/21 Creatinine 1.2 mg/dL (0.70-1.30) 09/06/21 13:15 09/06/21 Estimated GFR/1.73 m2 >= 60.00 (mL/min/1.73m2) 09/06/21 13:15 09/06/21 Calcium Level 9.8 mg/dL (8.5-10.1) 09/06/21 13:15 09/06/21 Glucose Level 98 mg/dL (74-106) 09/06/21 13:15 09/06/21 Hemoglobin A1c 6.5 % (<5.7) H 09/06/21 13:15 09/06/21 Liver Function Panel: Alanine Aminotransferase (ALT/SGPT) 59 U/L (16-63) 09/06/21 13:15 09/06/21 Aspartate Amino Transf (AST/SGOT) 58 U/L (15-37) H 09/06/21 13:15 09/06/21 Coagulation Panel: No Data to Display Cardiac Panel: Creatine Kinase 161 U/L (39-308) 09/06/21 13:15 09/06/21 Arterial Blood Gas: No Data to Display Venous Blood Gas: No Data to Display Pancreas Panel: No Data to Display Thyroid Panel: No Data to Display Infectious Disease: Coronavirus (COVID-19)(PCR) Negative (Negative) 09/07/21 10:23 09/07/21 Coronavirus 2019 Source Nasal/Nares 09/07/21 10:23 09/07/21 Blood Cultures: No Data to Display Toxicology Panel: No Data to Display Anesthesia Assessment and Plan Anesthesia History Personal History: No History of Anesthesia Complications Family History: No Family History of Anesthesia Complications Exercise Tolerance Exercise Tolerance: Metabolic Equivalents>4 Pertinent Negatives Pertinent Negatives: No Symptoms of GERD, No Major Cardiovascular Symptoms or Complaints (See cardiac history ), No Major Pulmonary Symptoms or Complaints and No History of CVA/TIA Cardiac & Pulmonary Exam Cardiac Exam: Normal S1/S2 Heart Sounds Pulmonary Exam: Clear Bilateral Breath Sounds Implantable Cardiac Device Does patient have a Pacemaker or an ICD?: No Airway Exam Known Difficult Airway: No Mallampati Class: 3 Mouth Opening: Normal (> 3cm) Thyromental Distance: Greater than 3 cm Facial Hair: Full [place] Neck Range of Motion: Full ROM Neck Circumference: Thick Teeth Condition: Generalized Poor Dentition and Edentulous (Upper ) Airway Comments: Left bottom broken ASA Classification ASA Score: ASA 3 Emergency Case?: No NPO Status NPO Status: NPO Clears >2 hours, Solids >8 hours Anesthesia Plan Resuscitation Status: Full Code Anesthesia Technique: General Anesthesia Airway Planned: LMA Monitors Used: Standard Monitors
[2021-09-09] MEDS: Lactated Ringers 1,000 ML 100 ML IV (11:57)
[2021-09-09] MEDS: ceFAZolin 3,000 MG in Normal Saline 100 ML 200 MG IVPB (13:14)
[2021-09-09] MEDS: MORPHine 4 MG/ML SYR (14:20)
[2021-09-09] MEDS: EPINEPHrine 30 MG/30 ML VIAL (14:30)
--- NOTE | 2021-09-09 14:35 | W.PM.DSUDISC ---
Discharge Plan Disposition Patient Disposition: HOME Condition: Stable Discharge Details Reason For Visit: Right knee surgery Attending Provider: Nic Roger Primary Care Provider: Leslie Hernandez Home Meds and New Rx's Prescriptions: New oxycodone 5 mg tablet 5 - 10 mg PO Q4H PRN (Reason: moderate to severe pain) Qty: 12 RF: 0 naproxen 250 mg tablet 250 - 500 mg PO BID PRN (Reason: Moderate pain or swelling) Qty: 40 RF: 0 Continued amlodipine 5 mg tablet 5 mg PO DAILY Qty: 90 RF: 6 nitroglycerin [Nitrostat] 0.4 mg tablet, sublingual 0.4 mg Sublingual ONCE Qty: 90 RF: 0 atorvastatin 80 MG tablet 80 mg PO DAILY RF: 0 metoprolol succinate 100 MG tablet extended release 24 hr 100 mg PO DAILY RF: 0 aspirin 81 MG tablet,chewable 81 mg PO DAILY RF: 0 Flovent HFA 12 GM HFA aerosol inhaler 220 mcg Inhalation BID RF: 0 lisinopril 40 MG tablet 40 mg PO DAILY RF: 0 metformin 500 mg Tablet Extended Release 24hr 500 mg PO QAM RF: 0 Discharge Instructions Additional Instructions: Surgery: Right knee manipulation under anesthesia and arthroscopy with partial medial meniscectomy and synovectomy Activity: Weightbearing as tolerated. Advance range of motion as comfort allows. No knee brace or crutches needed as soon as comfortable. Recommend avoiding sports, pivoting, and squatting for 6-8 weeks. A physical therapy prescription will be sent electronically to start in 2 to 3 weeks. Prescriptions: resume Aspirin 81 mg daily tomorrow Naproxen 250 mg take 1-2 every 12 hours with a meal as needed for moderate pain Oxycodone 5 mg take 1-2 every 4-6 hours as needed for severe pain You may use [id number] Tylenol (acetaminophen) as needed for mild pain. These pain medications may be taken all at once or in different combinations as needed. Also, recommend Colace (docusate) as a stool softener as surgery and pain medicine cause constipation. Dressings: Leave dressing in place for 3 days. May then remove and leave open to air or cover incisions with Band-Aids. May shower after 5 days. Follow-up: 10-[address] Roger Let us know right away if you develop any redness, drainage, fevers, chest pain, or trouble breathing. Do not drink alcohol or drive for at least 24 hours after anesthesia. Please call the office during business hours with any questions or concerns. Referrals: Nic Roger MD [ [facility] STAFF PHYSICIAN] - DS: Diagnosis Discharge Diagnosis (1) Arthrofibrosis of knee joint: Status: Acute (2) Acute medial meniscus tear of right knee: Status: Acute (3) Chondromalacia of right knee: Status: Acute
--- NOTE | 2021-09-09 14:53 | ROE_ITS ---
Date of service: 09/09/21 Time of Service: 13:00 Operative Note Operative Note DATE OF PROCEDURE: 09/09/21 PRE-OP DIAGNOSIS: Right knee 1. Medial meniscus tear 2. Arthrofibrosis POST-OP DIAGNOSIS: same Right knee 1. Medial meniscus tear 2. Arthrofibrosis 3. Chondromalacia PROCEDURE: Right knee 1. Partial medial meniscectomy, CPT #45105 2. Greater than 2 compartment synovectomy, CPT #91994: Patellofemoral, medial gutter, and anteromedial, and anterolateral. 3. Manipulation under anesthesia, CPT #23860 SURGEON: Nic Roger MAINTENANCE COORDINATOR: None None Refer to Anesthesia Record PATHOLOGY: none sent TOURNIQUET TIME: 0 COMPLICATIONS: None Patient was transported to: PACU Patient's condition: stable Indications: Please see complete medical record for details. Findings: Exam under anesthesia: Flexion contracture about 8 degrees. Limited flexion although improved to about 125 degrees. Hypomobile patella. Stable varus, valgus, Prabhakar, anterior and posterior drawer. Arthroscopic findings: Patellofemoral engaging synovitis with suprapatellar pouch adhesions, large medial gutter synovial plica, moderate anteromedial anterolateral hemorrhagic synovitis. Mild relatively diffuse grade 1?2 chondromalacia undersurface patella. Moderate relatively diffuse grade 2?3 chondromalacia medial femoral condyle and medial tibial plateau. Posterior horn complex medial meniscus tear with somewhat degenerative horizontal extension to about the junction of the posterior horn and body with a small radial component more posteriorly. Partial degeneration of medial meniscal root and scarring of the adjacent posterior horn to posterior capsule. Relatively preserved lateral compartment. Intact lateral meniscus. Intact ACL. No loose bodies. Procedure Description: In the operating room, genral anesthesia was induced. The patient was positioned supine on the operating room table. All bony prominences were well-padded. Preoperative antibiotics were administered. The correct patient, procedure, and site procedure were all verified prior to beginning. The knee was examined and stiffness confirmed. Contralateral knee was examined and had full range of motion including a couple degrees of hyperextension. Progressive stretching and extension was used to restore full terminal extension with gentle guided releasing. Alternating with progressive flexion using a short lever arm to achieve full flexion and palpable peripatellar soft tissue releases. Both positions of just slight hyperflexion and full deep flexion were achieved numerous times and maintained with the patient relaxed. The patella was then mobilized appropriately. The resting position was still slightly limited although near full extension at this point. Range of motion was about 2-142 degrees. The knee was prepped and draped in the usual sterile fashion. 10 cc of 0.5% bupivacaine containing epinephrine was infiltrated about the planned anteromedial and anterolateral knee arthroscopy portals. The portals were established and a complete diagnostic arthroscopy was performed with relevant findings detailed above. The mechanical shaver was used to remove pathologic synovium from the anteromedial, anterolateral, and patellofemoral compartments. This involved resection of suprapatellar pouch synovial adhesions as well as engaging patellofemoral synovitis alternating working and viewing through medial and lateral portals with knee in extension and 90 degrees of flexion. The large medial gutter synovial plica was then fully exposed and resected with the mechanical shaver restoring contour of the medial gutter and revealing indentation in the adjacent medial femoral condyle cartilage. Using a combination of hand instruments including meniscal biters and a power shaver and working through the anteromedial and anterolateral compartments the medial meniscus was debrided of all torn tissue to a stable margin. Care was taken to preserve as much meniscus tissue was possible. The meniscal remnant was probed and found to have a stable margin although the central aspect did still exhibit some degeneration, stable although diminutive root, and no other tears. The arthroscope was directed into the posterior medial compartment and there were no loose bodies or additional components of the meniscus tear visualized here. Additionally there was no posterior medial adhesion or significant synovitis. Under direct arthroscopic visualization an 18-gauge needle was passed into the knee from superolateral into the suprapatellar pouch. The knee was copiously irrigated with arthroscopic fluid until there was a clear effluent before being drained of all fluid. The anteromedial and anterolateral portals were closed in 3-0 Monocryl in a buried interrupted fashion. 20 cc of 0.5% bupivacaine with epinephrine containing 4 mg of morphine was infiltrated into the knee through the previously placed needle. Mastisol, Steri-Strips, and 4 x 4 gauze were applied over the incisions followed by sterile soft roll. The knee was then wrapped gently with an OBNNY comressive bandage. The patient awoke from anesthesia without complication and was transferred to the recovery room in a stable condition.
--- NOTE | 2021-09-09 15:00 | W.ANESPOSTOP ---
Postoperative Evaluation Date, Time and Location Date Performed: 09/09/21 Time Performed: 15:00 Patient Location: Day Surgery Unit Vital Signs Most Recent Imported Vital Signs: Most Recent Vital Signs Temp Pulse Resp BP Pulse Ox 36.2 C L 66 15 151/70 H 92 09/09/21 14:50 09/09/21 14:50 09/09/21 14:50 09/09/21 14:50 09/09/21 14:50 Assessment Mental Status: Awake (Alert & Oriented to Patient Baseline) Airway and Respiratory Function: Patent airway with normal (patient baseline) respiratory exam Cardiovascular Function: Hemodynamically Stable Hydration Status: Adequately Hydrated Nausea & Vomiting: No Nausea or Vomiting Pain: Pain is tolerable per patient Peripheral Nerve Block: Patient did not receive a nerve block Teaching Patient Teaching: Discussed Safe Use of Pain Medication Given Recent Anesthesia and Discussed Safe Use of Pain Medication Given Likely or Known JANE
== END 2021-09-09 16:15 | disposition home or self-care (01) ==
PROVIDERS: PCP Nurse Practitioner Family; Visit Provider Student in an Organized Health Care Education/Training Program
PROC: (CPT 29870; principal; 2021-09-09 13:00)
DX: S83.241A Other tear of medial meniscus, current injury, right knee, initial encounter (principal); M24.661 Ankylosis, right knee; M94.261 Chondromalacia, right knee; X50.0XXA Overexertion from strenuous movement or load, initial encounter; E66.01 Morbid (severe) obesity due to excess calories; Z68.41 Body mass index [BMI] 40.0-44.9, adult; I25.2 Old myocardial infarction; J44.9 Chronic obstructive pulmonary disease, unspecified
CPT/HCPCS: 29876; 29881; J0131; J0690; J1100; J1885; J2001; J2270; J2405

== ENCOUNTER → 2021-09-22 09:08 | Outpatient (BNVA) | payer MEDICARE, MEDICAID, SELFPAY | PROVIDERS: PCP Nurse Practitioner Family; Referring Provider Nurse Practitioner Family; Visit Provider Student in an Organized Health Care Education/Training Program | DX: Z47.89 Encounter for other orthopedic aftercare (principal); M25.561 Pain in right knee ==

== ENCOUNTER → 2021-11-04 13:57 | Outpatient (BNVA) | payer MEDICARE, MEDICAID, SELFPAY | PROVIDERS: PCP Nurse Practitioner Family; Referring Provider Nurse Practitioner Family; Visit Provider Internal Medicine Cardiovascular Disease | DX: I25.10 Atherosclerotic heart disease of native coronary artery without angina pectoris (principal); E78.5 Hyperlipidemia, unspecified; I10 Essential (primary) hypertension | CPT/HCPCS: 99213 ==

== ENCOUNTER → 2021-11-10 08:33 | Outpatient (BNVA) | payer MEDICARE, MEDICAID, SELFPAY | PROVIDERS: PCP Nurse Practitioner Family; Referring Provider Nurse Practitioner Family; Visit Provider Student in an Organized Health Care Education/Training Program | DX: S83.241D Other tear of medial meniscus, current injury, right knee, subsequent encounter (principal); X58.XXXD Exposure to other specified factors, subsequent encounter ==

== ENCOUNTER 2021-12-06 14:00 | Outpatient (REF) | payer MEDICARE, MEDICAID, SELFPAY ==
[2021-12-06 21:00] LABS: Hemoglobin A1C 6.8 % (<5.7)
== END 2021-12-06 14:01 | disposition home or self-care (01) ==
LOC: NCHCN 14:00
PROVIDERS: PCP Nurse Practitioner Family; Visit Provider Nurse Practitioner Family
DX: E11.9 Type 2 diabetes mellitus without complications (principal)
CPT/HCPCS: 83036

== ENCOUNTER 2022-07-04 20:21 | Outpatient (REF) | payer MEDICARE, MEDICAID, SELFPAY ==
[2022-07-04 20:26] LABS: Anion Gap 8.5 mmol/L (3-11); BUN 21 mg/dL (7-18); CO2 27.5 mmol/L (21.0-32.0); CREATININE 1.2 mg/dL (0.70-1.30); Calcium 9.8 mg/dL (8.5-10.1); Chloride 103 mmol/L (98-107); Estimated GFR 66.28 (mL/min/1.73m2); Glucose 97 mg/dL (74-106); HDL Cholesterol 33 mg/dL (40-60); LDL CHOLESTEROL 66 mg/dL (<100); Potassium 4.4 mmol/L (3.5-5.1); Sodium 139 mmol/L (136-145)
== END 2022-07-04 20:22 | disposition home or self-care (01) ==
LOC: NCHCN 20:21
PROVIDERS: PCP Nurse Practitioner Family; Visit Provider Nurse Practitioner Family
DX: R07.89 Other chest pain (principal)
CPT/HCPCS: 80048; 83721; 83718

== ENCOUNTER 2022-07-05 10:31 | Outpatient (CLI) | payer MEDICARE, MEDICAID, SELFPAY ==
--- NOTE | 2022-07-05 10:15 | DI.RAD_ITS ---
Exam(s) XR KNEE RT 2V AP,LAT EXAM: XR KNEE RT 2V AP,LAT CLINICAL HISTORY: pain in right knee. TECHNIQUE: 2D digital imaging was performed. COMPARISON: CR XR KNEE RT 3V AP,LAT,POLI from 08/24/2021 FINDINGS: Two views-AP and lateral There is no evidence of fracture nor prominent joint effusion. Small amount of increased joint fluid noted but less than previous. Mild prepatellar soft tissue swelling is again noted. There is mild narrowing of the medial compartment, slightly more than previous and there is now at ti ny marginal osteophyte on the medial aspect of the medial tibial plateau, not previously present. Mauri ne density normal. No osseous lesions. IMPRESSION: As above. DATA REPOSITORY: RADIATION DOSE DELIVERED:
== END 2022-07-05 10:32 | disposition home or self-care (01) ==
LOC: DIORS 10:32
PROVIDERS: PCP Nurse Practitioner Family; Referring Provider Nurse Practitioner Family; Visit Provider Student in an Organized Health Care Education/Training Program
DX: M94.261 Chondromalacia, right knee (principal); S83.241D Other tear of medial meniscus, current injury, right knee, subsequent encounter; X58.XXXD Exposure to other specified factors, subsequent encounter
CPT/HCPCS: 99213; 73560

== ENCOUNTER → 2022-07-19 02:29 | Outpatient (CLI) | payer MEDICARE, MEDICAID, SELFPAY ==
--- NOTE | 2022-07-19 11:00 | DI.NM_ITS ---
APPROVED REPORT Exam: Pharmacologic Patient Location: Out-Patient Room/Bed: Stress Nurse: Citlalli Clayton RN Ordering Provider:KRYSTEN OMALLEY, Contact Number: [phone] BMI: 39.68 Baseline Rhythm: Sinus Rhythm Comment: T wave inversion in aVL Indications: Chest Pain, CP Radiating to arm, Relieved w/ nitro, HX of NSTEMI Medical History Medical History: Coronary atherosclerosis, unstable angina, HTN, HLD, DM, former smoker, NSTEMI, COPD , obesity Cardiac Medications: Nitro, Metoprolol Succinate, Metformin, Lisinopril, Atorvastatin, ASA, Amlodipin e, Albuterol Sulfate Allergies: NKA Cardiac Risk Factors: HTN, HLD, CVD, DM, Previous Cardiac Procedures: Hx NSTEMI, cardiac cath w/ stents 2015 Pretest Chest Pain Characteristics: None Exercise History: Sedentary Physical Disabilities: leg discomfort, back pain, decreased endurance Lung Sounds: LCTA Heart Sounds: Regular Stress Test Details Test: Pharmacologic stress was paired with low level exercise. Reason for pharmacologic stress test: physical limitation. Nuclear Acquisition: Rest Tc-99m/Stress Tc-99m 1 day Rest Isotope: Tc-99m Sestamibi. Dose: 12 ml Date: 07/19/2022 Injection Time: 11:10 Stress Isotope: Tc-99m Sestamibi. Dose: 37.5 ml Date: 07/19/2022 Injection Time: 13:22 HR Resting HR Supine: 64 bpm Max Heart Rate (APMHR): 153.948269 bpm Resting HR Standin bpm Target HR (85% APMHR): 130.872975 bpm Max HR Achieved: 102 bpm % of APMHR: 66.67 Recovery HR: 76 bpm BP Resting BP Supine: 140/84 mmHg Resting BP Standin/80 mmHg Max BP: 168/72 mmHg Recovery BP: 162/80 mmHg ECG Resting ECG: Sinus Rhythm Comment: T wave inversion in aVL Stress ECG: Sinus Rhythm ST Change: No significant ST segment changes noted Arrhythmia: None Recovery ECG: Sinus Rhythm Recovery ST Change: No significant ST segment changes noted Recovery Arrhythmia: Rare PVC Comment: T wave inversion, aVL Clinical Stress Symptoms: shortness of breath, headache, dizziness Rate Pressure Product: 64195 Stress ECG Conclusion 1. Resting electrocardiogram showed LVH voltage, incomplete right bundle branch block 2. Patient underwent testing using combination of low-level exercise and regadenoson 3. Peak heart rate achieved was 66% of maximal predicted for age 4. Electrocardiographic portion of the test was nondiagnostic due to inadequate heart rate 5. See MPI report Stress Test Summary STAGE HR BP SpO2 Symptoms NOTES Supine 64 140/84 Standing 69 150/80 1 min post Lexiscan injection 101 160/78 shortness of breath 3 min post Lexiscan injection 97 168/72 Headache, shortness of breath resolved 6 min post Lexiscan injection 83 162/80 GUY resolved Patient did a walking Lexiscan. The patient walked at 1.3 mph while Lexiscan was injected. Patient wa lked for 2 minutes post injection and then returned to the stretcher. Pt verbalized some dizziness an d headche after treadmill stopped and as he returned to the stretcher. All symptoms resolved within a minute of rest on the stretcher. MPI Conclusion There is mild posterior lateral ischemia, no definite infarction EF is 46%. 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 Radiologist Interpretation by: Sourav Goodwin MD Interpretation Date/Time: 07/21/2022 08:36:25
[2022-07-19] MEDS: Regadenoson 0.4 MG/5 ML SYR IVP (13:48)
== END ==
PROVIDERS: PCP Nurse Practitioner Family; Visit Provider Nurse Practitioner Family
DX: R07.9 Chest pain, unspecified (principal); I25.2 Old myocardial infarction; I20.0 Unstable angina; I10 Essential (primary) hypertension; R94.31 Abnormal electrocardiogram [ECG] [EKG]
CPT/HCPCS: 78452; 93016; 93018; 93017; J2785

== ENCOUNTER 2022-07-25 12:18 | Emergency (ER) | payer MEDICARE, MEDICAID, SELFPAY ==
[2022-07-25] VITALS (18 sets, daily range): BP systolic 122–172; BP diastolic 61–77; PULSE 60–79; RESP 11–20; TEMP 36.8; O2SAT 93–97
--- NOTE | 2022-07-25 12:15 | RT.EKG_ITS ---
APPROVED REPORT Exam: Resting ECG Reason for Exam: chest pain Patient Location: E HR:69 bpm ECG Measurements Heart Rate 69 AXIS MS 157 P 45 QRSd 124 QRS 38 QT 400 T 56 QTc 427 Conclusion Sinus rhythm...normal P axis, V-rate 60- 99 IVCD, consider RBBB...QRSd>120mS, terminal axis(90,270). Sinus. Widened QRS. RBBB. No significant change from previous EKG 2017. No STEMI. I have reviewed and interpreted ECG and agree with software generated interpretation.
--- NOTE | 2022-07-25 12:30 | DI.RAD_ITS ---
Exam(s) XR CHEST 2V PA LATERAL EXAM: XR CHEST 2V PA LATERAL CLINICAL HISTORY: CP TECHNIQUE: 2D digital imaging was performed. COMPARISON: CT CT CHEST LUNG CANCER SCREEN from 03/06/2020 FINDINGS: HEART: Normal size. Aorta: PULMONARY VASCULATURE: Normal. LUNGS: Scarring left lower lobe. No infiltrate. PLEURAL SPACE: No pleural effusion or pneumothorax. BONE:Unremarkable for age. IMPRESSION: No acute abnormality. DATA REPOSITORY: RADIATION DOSE DELIVERED:
--- NOTE | 2022-07-25 12:51 | W.ED.GENAD ---
Discharge Plan Disposition Patient Disposition: HOME Condition: Stable Discharge Details Clinical Impression: Chest pain Primary Care Provider: Leslie Hernandez ED Provider: Mamta Gaona Home Meds and New Rx's Prescriptions: Continued nitroglycerin [Nitrostat] 0.4 mg tablet, sublingual 0.4 mg Sublingual ONCE Qty: 90 0RF atorvastatin 80 MG tablet 80 mg PO DAILY metoprolol succinate 100 MG tablet extended release 24 hr 100 mg PO DAILY aspirin 81 MG tablet,chewable 81 mg PO DAILY fluticasone propionate [Flovent HFA] 12 GM HFA aerosol inhaler 220 mcg Inhalation BID lisinopril 40 MG tablet 40 mg PO DAILY amlodipine 10 mg tablet 10 mg PO DAILY metformin 500 mg Tablet Extended Release 24hr 500 mg PO QAM naproxen 250 mg tablet 250 - 500 mg PO BID PRN (Reason: Moderate pain or swelling) Qty: 40 0RF Discharge Instructions Instructions: Chest Pain (ED) Additional Instructions: At this time both troponin are negative. We have discussed your work-up with cardiology at [facility] and with Dr. Jose. I feel at this time is safe for you to be discharged home. However if you have any return of symptoms or feel any worse you may return to the ER. Please keep your appointment with Dr. Jose tomorrow at 9 AM as previously scheduled. You may take the nitro up to 3 times every 5 minutes as needed for new onset of chest pain. If the chest pain does not go away please return to the ER. Follow up with primary care provider in 3-5 days. Return to ED sooner if any worsening or concerns. Increase oral fluids. Referrals: Leticia Jose MD [ [facility] STAFF PHYSICIAN] - 1 day Leslie Hernandez [Primary Care Provider] - 1 week Discharge Data Discharge Date/Time-TO BE ENTERED AT DEPARTURE: 07/25/22 17:10 Medical Decision Making <JEZ Herrera - Last Filed: 08/05/22 21:11> Patient is a pleasant 57-year-old male presenting today, accompanied by his , with chief complaints of chest pain. Patient has a past medical history pertinent for CAD, has had stents placed historically. Patient underwent percutaneous intervention 2018 to the left LAD, first diagonal and right coronary. Known chronic occlusions. He states that he has been having recurrence of his typical ACS symptoms which involve pain in the left posterior leg radiating up towards her left side of the chest and then down the left arm. Denies any neck or jaw pain. No nausea or vomiting. States that his exertionally based. Over the past month he has been having more more frequently with less exertion. He did undergo a stress test yesterday. Is scheduled to see Dr. Jose tomorrow in follow-up. He denies being short of breath or having difficulty breathing. No recent travel. Denies any cough, fever/chills. EKG obtained and reviewed by Dr. Sorto with no acute ischemic changes noted. Stress test from yesterday: Stress ECG Conclusion 1. Resting electrocardiogram showed LVH voltage, incomplete right bundle branch block 2. Patient underwent testing using combination of low-level exercise and regadenoson 3. Peak heart rate achieved was 66% of maximal predicted for age 4. Electrocardiographic portion of the test was nondiagnostic due to inadequate heart rate 5. See MPI report MPI Conclusion There is mild posterior lateral ischemia, no definite infarction EF is 46%.? The posterolateral segment and inferobasal segments are hypocontractile Patient has known chronic total occlusions of the OM1 and posterolateral branch which would correspond to these areas On exam, patient appears nontoxic. He is currently not endorsing any chest pain. He did take nitro prior to arrival which completely subsided his symptoms. Primarily concern for unstable angina versus NSTEMI. Will obtain troponins. We will augment his aspirin to full dosing. We will also consult with Dr. Jose at the patient was scheduled to see her tomorrow anyway. He is hemodynamically stable and no evidence of fluid overload Iniital troponin WNL, repeat pending. Consulted with Dr. Jose. She advised that her plan for tomorrow's appointment was to schedule repeat cardiac cath. Will consult with as I am concerned for UA and possible need for more urgent procedure. HEART: Normal size.? Aorta: PULMONARY VASCULATURE: Normal. LUNGS: Scarring left lower lobe.? No infiltrate. ? PLEURAL SPACE: No pleural effusion or pneumothorax. BONE:Unremarkable for age.? IMPRESSION: No acute abnormality.? Spoke with [facility] cardiologyTed. He advises the patient's not having any resting chest pain patient will be able to be able to go home. He advised that if the patient was having chest pain while here this to be much more concerning. He does recommend repeat troponin particularly as patient was having pain immediately prior to arrival. We did discuss medically managing the patient as much as possible and he did advise that we could consider adding isosorbide mononitrate. Plan to obtain repeat troponin with likely discharged home if this is negative. Patient will need to continue with his nitro as needed for discomfort and keep his appointment tomorrow with cardiology. <Mamta Gaona NP - Last Filed: 07/25/22 21:40> Medical Records Medical records reviewed: Yes I reviewed the patient's medical records. Medical records narrative: 1630: SJ: Care assumed from provider (JEZ De) Please see their initial HPI, PE, and documentation. Discussed patient details and case and pending workup and disposition. Patient is hemodynamically stable, and alert and oriented. At the time of signout [facility] consultation was pending and serial troponin. iDnora did speak with [facility] cardiology who wanted to get a repeat troponin. Repeat troponin has resulted and is within normal limits. I will discussed with patient results and to keep his appointment with Dr. Jose tomorrow as previously scheduled. Patient alert and oriented remained hemodynamically stable and chest pain-free throughout the remainder of stay. This text was generated using [employer] dictation system, please disregard any oddities of phrase or misspellings. Lab Data Lab results reviewed: Yes I reviewed the patient's lab results. Labs: Laboratory Tests Range/Units 07/25/22 07/25/22 07/25/22 12:45 12:45 12:45 WBC (4.4-10.8) 10^3/uL 7.94 RBC (4.36-5.78) 10^6/uL 5.14 Hgb (13.5-17.5) g/dL 14.7 Hct (40.0-50.0) % 43.9 MCV (80-95) fL 85 MCH (27.0-33.0) pg 28.6 MCHC (32.0-36.0) % 33.5 RDW (11.8-14.1) % 13.1 Plt Count (130-400) 10^3/uL 221 MPV (8.0-11.0) fL 10.7 Immature Gran % 0.3 Neutrophils % 53.0 Lymphocytes % 32.1 Monocytes % 11.6 Eosinophils % 2.4 Basophils % 0.6 Nucleated RBC % (0.0-0.3) % 0.0 Absolute Neutrophils (1.2-6.7) 10^3/uL 4.21 Absolute Lymphocytes (1.2-3.4) 10^3/uL 2.55 Absolute Monocytes (0.1-0.8) 10^3/uL 0.92 H Absolute Eosinophils (0.0-0.7) 10^3/uL 0.19 Absolute Basophils (0.0-0.2) 10^3/uL 0.05 PT (9.3-11.0) sec 9.9 INR (0.9-1.1) 1.0 APTT (21.0-27.5) sec 24.3 Sodium (136-145) mmol/L 137 Potassium (3.5-5.1) mmol/L 4.1 Chloride (98-107) mmol/L 103 Carbon Dioxide (21.0-32.0) mmol/L 26.1 Anion Gap (3-11) mmol/L 7.9 BUN (7-18) mg/dL 18 Creatinine (0.70-1.30) mg/dL 1.2 Est GFR (CKD-EPI 2020) (mL/min/1.73m2) 66.28 Glucose (74-106) mg/dL 143 H Calcium (8.5-10.1) mg/dL 9.5 Magnesium (1.8-2.4) mg/dL 2.1 Total Bilirubin (0.2-1.0) mg/dL 0.5 AST (15-37) U/L 36 ALT (16-63) U/L 43 Alkaline Phosphatase (46-116) U/L 84 Troponin I (<or=60) ng/L < 50 Total Protein (6.4-8.2) g/dL 8.3 H Albumin (3.4-5.0) g/dL 4.2 Range/Units 07/25/22 16:07 WBC (4.4-10.8) 10^3/uL RBC (4.36-5.78) 10^6/uL Hgb (13.5-17.5) g/dL Hct (40.0-50.0) % MCV (80-95) fL MCH (27.0-33.0) pg MCHC (32.0-36.0) % RDW (11.8-14.1) % Plt Count (130-400) 10^3/uL MPV (8.0-11.0) fL Immature Gran % Neutrophils % Lymphocytes % Monocytes % Eosinophils % Basophils % Nucleated RBC % (0.0-0.3) % Absolute Neutrophils (1.2-6.7) 10^3/uL Absolute Lymphocytes (1.2-3.4) 10^3/uL Absolute Monocytes (0.1-0.8) 10^3/uL Absolute Eosinophils (0.0-0.7) 10^3/uL Absolute Basophils (0.0-0.2) 10^3/uL PT (9.3-11.0) sec INR (0.9-1.1) APTT (21.0-27.5) sec Sodium (136-145) mmol/L Potassium (3.5-5.1) mmol/L Chloride (98-107) mmol/L Carbon Dioxide (21.0-32.0) mmol/L Anion Gap (3-11) mmol/L BUN (7-18) mg/dL Creatinine (0.70-1.30) mg/dL Est GFR (CKD-EPI 2020) (mL/min/1.73m2) Glucose (74-106) mg/dL Calcium (8.5-10.1) mg/dL Magnesium (1.8-2.4) mg/dL Total Bilirubin (0.2-1.0) mg/dL AST (15-37) U/L ALT (16-63) U/L Alkaline Phosphatase (46-116) U/L Troponin I (<or=60) ng/L < 50 Total Protein (6.4-8.2) g/dL Albumin (3.4-5.0) g/dL HPI <JEZ Herrera - Last Filed: 08/05/22 21:11> General Date/Time Provider Initiated Documentation: 07/25/22 12:39. Limitations to Documentation: no limitations. Information obtained by: patient, family, RN notes reviewed and old records reviewed. History of Present Illness 67 year old M presents to the emergency department with the chief complaint of chest pain, described as mild (none currently), Quality is described as aching, and is localized to the chest. Patient reports radiation to (begins in the LLE, comes up into chest then neck). Patient started experiencing this unknown (has chronic pain with recent worsening of symptoms) and it has been intermittent. Immobilization improves symptom(s), Movement worsens symptoms . Patient notes chest pain, diaphoresis (associated with CP) and malaise; denies cough, fever/chills, nausea/vomiting, rash, shortness of breath and weakness. Patient did receive the following treatments prior to arrival, other (nitro) Related Data Home Medications Medication Instructions Recorded Confirmed aspirin 81 mg chewable tablet 81 mg PO DAILY 05/02/18 07/26/22 atorvastatin 80 mg tablet 80 mg PO DAILY 05/02/18 07/26/22 fluticasone propionate 220 220 mcg inhalation BID 05/02/18 07/26/22 mcg/actuation HFA aerosol inhaler (Flovent HFA) lisinopril 40 mg tablet 40 mg PO DAILY 05/02/18 07/26/22 metoprolol succinate 100 mg 100 mg PO DAILY 05/02/18 07/26/22 tablet,extended release 24 hr metformin 500 mg tablet,extended 500 mg PO QAM 12/12/18 07/26/22 release 24hr nitroglycerin 0.4 mg sublingual 0.4 mg sublingual ONCE #90 tab-caps 08/15/19 07/26/22 tablet (Nitrostat) naproxen 250 mg tablet 250 - 500 mg PO BID PRN Moderate 09/09/21 07/26/22 pain or swelling #40 tabs amlodipine 10 mg tablet 10 mg PO DAILY 07/05/22 07/26/22 Previous Rx's Medication Instructions Recorded nitroglycerin 0.4 mg sublingual 0.4 mg sublingual ONCE #90 tab-caps 08/15/19 tablet (Nitrostat) naproxen 250 mg tablet 250 - 500 mg PO BID PRN Moderate 09/09/21 pain or swelling #40 tabs Allergies Allergy/AdvReac Type Severity Reaction Status Date / Time No Known Allergies Allergy Verified 07/26/22 09:11 General Stated Complaint: Chest Pain JOSE: 2 Review of Systems <JEZ Herrera - Last Filed: 08/05/22 21:11> Constitutional Constitutional: Reports as per HPI, Denies chills, Denies fever(s), Denies headache(s), Denies lethargy and Denies poor appetite ENT Ears, Nose, Mouth, and Throat: Denies dizziness and Denies headache(s) Cardiovascular Cardiovascular: Reports as per HPI, Denies dyspnea and Denies dyspnea on exertion Respiratory Respiratory: Reports as per HPI, Denies chest congestion, Denies cough, Denies pain on inspiration, Denies pain with cough, Denies dyspnea and Denies dyspnea on exertion Gastrointestinal Gastrointestinal: Reports as per HPI, Denies abdominal pain, Denies diarrhea, Denies nausea and Denies vomiting Musculoskeletal Musculoskeletal: Reports as per HPI and Denies back pain Integumentary/Breasts Skin/Breast: Reports as per HPI and Denies rash Neurologic Neurologic: Reports as per HPI, Denies dizziness and Denies headache(s) PFS <JEZ Herrera - Last Filed: 08/05/22 21:11> All Active Problems Chest pain (Acute) Chondromalacia of right knee (Acute) Angina effort (Acute) Coronary atherosclerosis (Acute) Hypertension (Acute) Hyperlipidemia (Acute) Unstable angina (Acute) UTI (urinary tract infection) (Acute) Lumbosacral spondylosis without myelopathy (Acute) Lumbosacral radiculopathy (Acute) Acute medial meniscus tear of right knee (Acute ~04/2021) S/P R knee arthroscopy with partial medial meniscectomy: 09/09/2021 Medical History (Updated 07/25/22 @ 16:55 by Mamta Gaona NP) Arthrofibrosis of knee joint Back pain with history of spinal surgery CAD (coronary artery disease) COPD (chronic obstructive pulmonary disease) Diabetes mellitus Former smoker History of angina HTN (hypertension) Hx of gastric ulcer Hx of non-ST elevation myocardial infarction (NSTEMI) Hyperlipidemia Laceration of finger Low back pain Sleep disorder Surgical History Rotator cuff arthropathy of right shoulder Social History Smoking/Tobacco Use Status: Former Tobacco Use Quit Date: 08/01/16 Pack-years: 60 Tobacco: How many years used: 30 Smoking risk assessment performed?: Yes Alcohol Intake: never Drug use: Never Substance use type: does not use Current gender identity: male What type of physical activity do you participate in: none Do you feel safe at home: Yes Do you feel safe in your relationship?: Yes Exam <JEZ Herrera - Last Filed: 08/05/22 21:11> Const General: cooperative, healthy appearing, comfortable, no acute distress and well developed Nutritional Appearance: average body habitus and well nourished Orientation: alert, awake and oriented x3 HENMT Head: normal to inspection Ears: hearing grossly normal bilaterally Mouth: moist mucous membranes Chest Chest: normal inspection of the chest, normal palpation of entire chest wall and no crepitus Resp Effort & Inspection: normal respiratory effort, able to speak in complete sentences and no respiratory distress Auscultation: clear to auscultation bilaterally, no rales, no rhonchi and no wheezes Cardio Rate: regular rate Rhythm: regular rhythm Heart Sounds: S1 normal and S2 normal GI Inspection: normal to inspection, no edema and non-distended Palpation: soft, no hepatosplenomegaly, not firm, no guarding, not rigid and nontender Auscultation: normal bowel sounds Back/Spine/Pelvis Back: no CVA tenderness Thoracic/Lumbar Spine: thoracic and lumbar spine normal to inspection Skin General skin exam: no rashes or lesions noted Trauma: no lacerations or abrasions Neuro General: patient alert, patient awake and patient oriented x3 Cognition: normal cognition Speech: speech normal Gait: normal gait Extrem General: normal to inspection, capillary refill normal, no pedal edema, no calf tenderness and normal gait Psych Appearance: grossly normal and well kempt Mental Status: mental status grossly normal Speech and Movement: speech and movement normal Course <JEZ Herrera - Last Filed: 08/05/22 21:11> Vital Signs Vital signs: Vital Signs Temperature 36.8 C 07/25/22 12:21 Pulse 76 07/25/22 12:21 Respiratory Rate 18 07/25/22 12:21 Blood Pressure 146/75 H 07/25/22 12:21 Pulse Oximetry 96 07/25/22 12:21 Temperature 36.8 C 07/25/22 12:21 Pulse 76 07/25/22 12:21 Respiratory Rate 18 07/25/22 12:26 Respiratory Effort 07/25/22 12:26 Respiratory Depth Normal 07/25/22 12:26 Respiratory Pattern Normal 07/25/22 12:26 Blood Pressure 146/75 H 07/25/22 12:21 Blood Pressure Position Sitting 07/25/22 12:21 Pulse Oximetry 96 07/25/22 12:21 Oxygen Delivery Method Room Air 07/25/22 12:21 Oxygen Flow Rate 0 07/25/22 12:21 Pain Level 0 07/25/22 12:26 Sign Out <JEZ Herrera - Last Filed: 08/05/22 21:11> Sign Out Data: Sign Out Comment: Care transition to Mandy Mendoza NP. Concern currently for unstable angina. Patient needs repeat troponin. Patient had stress testing last week which was positive, but this sent to [facility] along with today's EKG and imaging. Pending consultation. I did speak with patient's designer, Dr. Jose. She advised that this is simply her inpatient versus outpatient management. She advised to find that patient is having good response with the nitroglycerin. He does have an appointment for tomorrow. I would have a very low threshold to admit the patient however, patient who would like to transfer unstable angina. Repeat troponin and [facility] consultation pending. Last updated by Dinora Remy PA at 07/25/22 15:48
[2022-07-25 13:01] LABS: Abs Immature Grans 0.02 10^3/uL (0.0-0.06); Absolute Basophil Count 0.05 10^3/uL (0.0-0.2); Absolute Eosinophil Count 0.19 10^3/uL (0.0-0.7); Absolute Lymphocyte Count 2.55 10^3/uL (1.2-3.4); Absolute Monocyte Count 0.92 10^3/uL (0.1-0.8); Absolute Neutrophil Count 4.21 10^3/uL (1.2-6.7); Basophils % 0.6; Eosinophils % 2.4; HCT 43.9 % (40.0-50.0); HGB 14.7 g/dL (13.5-17.5); Immature Grans % 0.3; Lymphocytes % 32.1; MCH 28.6 pg (27.0-33.0); MCHC 33.5 % (32.0-36.0); MCV 85 fL (80-95); MPV 10.7 fL (8.0-11.0); Monocytes % 11.6; Platelet Count 221 10^3/uL (130-400); RBC 5.14 10^6/uL (4.36-5.78); RDW 13.1 % (11.8-14.1); RDW-SD 40.8 fL; WBC 7.94 10^3/uL (4.4-10.8)
[2022-07-25] MEDS: Aspirin 81 MG CHEW 243 MG CH (13:21)
[2022-07-25 13:27] LABS: PTT Activated 24.3 sec (21.0-27.5); Prothrombin Time 9.9 sec (9.3-11.0)
[2022-07-25 13:28] LABS: ALT 43 U/L (16-63); AST 36 U/L (15-37); Albumin 4.2 g/dL (3.4-5.0); Alkaline Phosphatase 84 U/L (46-116); Anion Gap 7.9 mmol/L (3-11); BUN 18 mg/dL (7-18); Bilirubin, Total 0.5 mg/dL (0.2-1.0); CO2 26.1 mmol/L (21.0-32.0); CREATININE 1.2 mg/dL (0.70-1.30); Calcium 9.5 mg/dL (8.5-10.1); Chloride 103 mmol/L (98-107); Estimated GFR 66.28 (mL/min/1.73m2); Glucose 143 mg/dL (74-106); Magnesium 2.1 mg/dL (1.8-2.4); Potassium 4.1 mmol/L (3.5-5.1); Sodium 137 mmol/L (136-145); Total Protein 8.3 g/dL (6.4-8.2); Troponin I < 50 ng/L (<or=60)
[2022-07-25 16:30] LABS: Troponin I < 50 ng/L (<or=60)
== END 2022-07-25 17:10 | disposition home or self-care (01) ==
PROVIDERS: Physician Assistant; Emergency Provider Registered Nurse Emergency; PCP Nurse Practitioner Family
DX: R07.9 Chest pain, unspecified (principal); I25.10 Atherosclerotic heart disease of native coronary artery without angina pectoris
CPT/HCPCS: 36415; 80053; 93005; 71046; 83735; 84484; 85025; 85610; 85730; 93010; 99283; 99284

== ENCOUNTER → 2022-07-26 09:00 | Outpatient (BNVA) | payer MEDICARE, MEDICAID, SELFPAY | PROVIDERS: PCP Nurse Practitioner Family; Referring Provider Nurse Practitioner Family; Visit Provider Internal Medicine Cardiovascular Disease | DX: I25.10 Atherosclerotic heart disease of native coronary artery without angina pectoris (principal) | CPT/HCPCS: 99214 ==

== ENCOUNTER 2022-09-30 22:30 | Emergency (ER) | payer MEDICARE, MEDICAID, SELFPAY ==
[2022-09-30 22:39] VITALS: BP 191/149; PULSE 79; RESP 18; TEMP 36.3; O2SAT 97
--- NOTE | 2022-09-30 23:46 | ED.GENADUL_ITS ---
Discharge Plan Disposition Patient Disposition: Home Condition: Stable Discharge Details Clinical Impression: Lumbar strain Primary Care Provider: Leslie Hernandez ED Provider: Jahaira Sorto Home Meds and New Rx's Prescriptions: New methocarbamol 500 mg tablet 500 mg PO Q6H PRN (Reason: muscle spasm) Qty: 14 0RF prednisone 20 mg tablet See Rx Instructions .ROUTE .COMPLEX Qty: 18 0RF Rx Instructions: Take 3 tabs daily for 3 days, then 2 tabs daily for 3 days, then 1 tab daily for 3 days. Continued nitroglycerin [Nitrostat] 0.4 mg tablet, sublingual 0.4 mg Sublingual ONCE Qty: 90 0RF atorvastatin 80 MG tablet 80 mg PO DAILY metoprolol succinate 100 MG tablet extended release 24 hr 100 mg PO DAILY aspirin 81 MG tablet,chewable 81 mg PO DAILY fluticasone propionate [Flovent HFA] 12 GM HFA aerosol inhaler 220 mcg Inhalation BID lisinopril 40 MG tablet 40 mg PO DAILY amlodipine 10 mg tablet 10 mg PO DAILY metformin 500 mg Tablet Extended Release 24hr 500 mg PO QAM naproxen 250 mg tablet 250 - 500 mg PO BID PRN (Reason: Moderate pain or swelling) Qty: 40 0RF Discharge Instructions Instructions: Low Back Strain (ED) Additional Instructions: It is suspected that your symptoms are secondary to a muscle strain in your lower back. Your symptoms can also be due to sciatica which is an inflammation of a large nerve in your lower back. Alternate ice and heat to the affected area(s) several times daily for 20 minutes at a time. Alternate tylenol and motrin as needed and directed for pain. Prescriptions for steroids and muscle relaxers have been sent electronically to your pharmacy to take as directed. Be sure to check your blood sugar regularly as steroids can raise your blood sugar. Follow-up with your primary care doctor in 1 week. Return to the emergency department with any worsening or new concerning symptoms. Discharge Data Discharge Physician: Jahaira Sorto Medical Decision Making 67-year-old male with a history of obesity, hypertension, hyperlipidemia, diabetes, COPD, coronary artery disease and back surgery presents for left-sided lower back pain with radiation to his left leg after laying on the ground changing oil in a truck and feeling like he twisted his back upon standing up. He denies any direct injury to his back. No cauda equina symptoms. Blood pressure hypertensive. This may be a component of pain. We will recheck. Patient appears uncomfortable. His back appears normal to inspection other than previously healed surgical scars. There are no signs of cellulitis, rash or trauma. He has tenderness to palpation of the lumbar midline and left pa raspinal region. He has no focal deficits and is neurovascularly intact. Do not see an indication for imaging as he denies any direct hit or fall onto his back. Suspect lumbar strain versus sciatica. We will give a dose of oxycodone, Valium and prednisone p.o. and Toradol IM injection. We will send prescriptions for prednisone and methocarbamol electronically to his pharmacy. Advised alternate Tylenol and Motrin, ice and heat. Advised to follow up with the primary care doctor for re-evaluation. Usual and customary return precautions given prior to discharge. HPI General Mode of arrival: ambulatory . Date/Time Provider Initiated Documentation: 09/30/22 22:46 . Limitations to Documentation: no limitations . Information obtained by: patient . HPI Narrative: Patient is a 67-year-old male with a history of hypertension, hyperlipidemia, coronary artery disease, diabetes and previous back surgery presents for left- sided lower back pain with radiation to his left leg since laying down on the ground changing oil in a truck and standing up and twisting his back earlier today. Patient states he was in a position for quite some time and when he stood up he thinks he may have twisted his back. He states he did not have pain initially but the pain started to develop throughout the day. He said the pain is worse with any movement. He has been taking Aleve without relief. Last dose almost 6 hours ago. Patient denies any bowel or bladder incontinence, saddle anesthesia, leg weakness or numbness. He denies any fall directly onto his back. Related Data Home Medications Medication Instructions Recorded Confirmed aspirin 81 mg chewable tablet 81 mg PO DAILY 05/02/18 07/26/22 atorvastatin 80 mg tablet 80 mg PO DAILY 05/02/18 07/26/22 fluticasone propionate 220 220 mcg inhalation BID 05/02/18 07/26/22 mcg/actuation HFA aerosol inhaler (Flovent HFA) lisinopril 40 mg tablet 40 mg PO DAILY 05/02/18 07/26/22 metoprolol succinate 100 mg 100 mg PO DAILY 05/02/18 07/26/22 tablet,extended release 24 hr metformin 500 mg tablet,extended 500 mg PO QAM 12/12/18 07/26/22 release 24hr nitroglycerin 0.4 mg sublingual 0.4 mg sublingual ONCE #90 tab-caps 08/15/19 07/26/22 tablet (Nitrostat) naproxen 250 mg tablet 250 - 500 mg PO BID PRN Moderate 09/09/21 07/26/22 pain or swelling #40 tabs amlodipine 10 mg tablet 10 mg PO DAILY 07/05/22 07/26/22 methocarbamol 500 mg tablet 500 mg PO Q6H PRN muscle spasm #14 10/01/22 tabs prednisone 20 mg tablet See Rx Instructions .Route 10/01/22 .COMPLEX #18 tabs Previous Rx's Medication Instructions Recorded nitroglycerin 0.4 mg sublingual 0.4 mg sublingual ONCE #90 tab-caps 08/15/19 tablet (Nitrostat) naproxen 250 mg tablet 250 - 500 mg PO BID PRN Moderate 09/09/21 pain or swelling #40 tabs methocarbamol 500 mg tablet 500 mg PO Q6H PRN muscle spasm #14 10/01/22 tabs prednisone 20 mg tablet See Rx Instructions .Route 10/01/22 .COMPLEX #18 tabs Allergies Allergy/AdvReac Type Severity Reaction Status Date / Time No Known Allergies Allergy Verified 07/26/22 09:11 General Stated Complaint: Nk/Back Pain JOSE: 4 Review of Systems All systems reviewed & are unremarkable except as noted in HPI and below Constitutional Constitutional: Reports as per HPI, Denies chills and Denies fever(s) Eyes Eyes: Denies blurry vision ENT Ears, Nose, Mouth, and Throat: Denies dizziness, Denies sore throat and Denies throat swelling Cardiovascular Cardiovascular: Denies chest pain and Denies dyspnea Respiratory Respiratory: Denies cough and Denies dyspnea Gastrointestinal Gastrointestinal: Denies abdominal pain, Denies diarrhea and Denies vomiting Genitourinary Genitourinary: Denies hematuria and Denies dysuria Musculoskeletal Musculoskeletal: Reports back pain and Denies numbness Integumentary/Breasts Skin/Breast: Denies lesions and Denies rash Neurologic Neurologic: Denies dizziness, Denies localized weakness and Denies numbness Allergic/Immunologic Allergic/Immunologic: Denies throat swelling PFSH All Active Problems Lumbar strain (Acute) Chondromalacia of right knee (Acute) Angina effort (Acute) Coronary atherosclerosis (Acute) Hypertension (Acute) Hyperlipidemia (Acute) Unstable angina (Acute) UTI (urinary tract infection) (Acute) Lumbosacral spondylosis without myelopathy (Acute) Lumbosacral radiculopathy (Acute) Acute medial meniscus tear of right knee (Acute ~04/2021) S/P R knee arthroscopy with partial medial meniscectomy: 09/09/2021 Medical History (Updated 10/01/22 @ 00:11 by Jahaira Sorto DO) Arthrofibrosis of knee joint Back pain with history of spinal surgery CAD (coronary artery disease) COPD (chronic obstructive pulmonary disease) Diabetes mellitus Former smoker History of angina HTN (hypertension) Hx of gastric ulcer Hx of non-ST elevation myocardial infarction (NSTEMI) Hyperlipidemia Laceration of finger Low back pain Sleep disorder Surgical History Rotator cuff arthropathy of right shoulder Social History Smoking/Tobacco Use Status: Former Tobacco Use Quit Date: 08/01/16 Pack-years: 60 Tobacco: How many years used: 30 Smoking risk assessment performed?: Yes Alcohol Intake: never Drug use: Never Substance use type: does not use Current gender identity: male What type of physical activity do you participate in: none Do you feel safe at home: Yes Do you feel safe in your relationship?: Yes Exam Const General: cooperative, uncomfortable and no acute distress Orientation: alert, awake and oriented x3 HENMT Head: normal to inspection Face and sinus: normal facial exam Eyes General: appearance normal, both eyes and all related structures Pupils: PERRL EOM: EOM intact bilaterally Neck Neck: normal visual inspection and No submandibular swelling Lymphatic: no lymphadenopathy noted Chest Chest: normal inspection of the chest and no tenderness Resp Effort & Inspection: normal respiratory effort and able to speak in complete sentences Auscultation: clear to auscultation bilaterally Cardio Rate: regular rate Rhythm: regular rhythm GI Inspection: normal to inspection Palpation: soft, not firm, not rigid and nontender Auscultation: normal bowel sounds Male General Exam: Yes normal external exam Back/Spine/Pelvis Thoracic/Lumbar Spine: thoracic and lumbar spine normal to inspection and straight leg raise negative bilaterally Back/spine/pelvis image: 1. Tenderness to palpation to midline lumbar and left lumbar paraspinal region. There are scattered areas of scars related to previous surgeries. There is no erythema, edema, ecchymosis, rash or lesions. Skin General skin exam: no rashes or lesions noted Neuro General: patient alert, patient awake and patient oriented x3 Cognition: normal cognition Speech: speech normal Motor: muscle tone normal throughout and strength 5/5 throughout Sensory Exam: no sensory deficits noted Extrem General: normal to inspection, full ROM, capillary refill normal, no calf tenderness bilaterally and no edema Other: B/L DP/PT pulses intact. Psych Appearance: grossly normal Mental Status: mental status grossly normal Speech and Movement: speech and movement normal Affect: normal affect Course Vital Signs Vital signs: Vital Signs Temperature 97.3 F L 09/30/22 22:39 Pulse 79 09/30/22 22:39 Respiratory Rate 18 09/30/22 22:39 Blood Pressure 191/149 H 09/30/22 22:39 Pulse Oximetry 97 09/30/22 22:39 Temperature 97.3 F L 09/30/22 22:39 Temperature Source Tympanic 09/30/22 22:39 Pulse 79 09/30/22 22:39 Respiratory Rate 18 09/30/22 22:39 Respiratory Effort 09/30/22 22:42 Blood Pressure 191/149 H 09/30/22 22:39 Blood Pressure Position Supine 09/30/22 22:39 Pulse Oximetry 97 09/30/22 22:39 Oxygen Delivery Method Room Air 09/30/22 22:39 Oxygen Flow Rate 0 09/30/22 22:39 Pain Level 9 09/30/22 22:39
[2022-10-01] MEDS: predniSONE 20 MG TAB 60 MG PO (00:15)
[2022-10-01] MEDS: oxyCODONE 5 MG TAB PO (00:16)
[2022-10-01] MEDS: diazePAM 5 MG TAB PO (00:16)
[2022-10-01] MEDS: Ketorolac 60 MG/2 ML VIAL IM (00:17)
[2022-10-01 00:42] VITALS: BP 177/90; PULSE 88; RESP 18; TEMP 37; O2SAT 100
== END 2022-10-01 00:43 | disposition home or self-care (01) ==
PROVIDERS: Emergency Provider Physician Assistant; PCP Nurse Practitioner Family
DX: S39.012A Strain of muscle, fascia and tendon of lower back, initial encounter (principal); X50.1XXA Overexertion from prolonged static or awkward postures, initial encounter; I10 Essential (primary) hypertension
CPT/HCPCS: 96372; 99284; 99283; J1885; J7512

== ENCOUNTER 2022-10-12 12:25 | Outpatient (CLI) | payer MEDICARE, MEDICAID, SELFPAY ==
--- NOTE | 2022-10-12 11:15 | DI.RAD_ITS ---
Exam(s) XR LUMBAR SPINE COMPLETE EXAM: XR LUMBAR SPINE COMPLETE CLINICAL HISTORY: RADICULOPATHY, LUMBAR REGION - M54.16. TECHNIQUE: 2D digital imaging was performed. Five views. COMPARISON: No exams were available for comparison FINDINGS: Posterior fusion hardware is noted at L5-S1. Disc spacer is present. The hardware appears intact. The overall spinal alignment appears normal. There are endplate osteophytes at all levels but no si gnificant disc space narrowing. Calcification seen in the aorta. IMPRESSION: Degenerative disc changes and postsurgical changes. DATA REPOSITORY: RADIATION DOSE DELIVERED:
== END 2022-10-12 12:45 ==
LOC: DI 12:27
PROVIDERS: PCP Nurse Practitioner Family; Visit Provider Nurse Practitioner Family
DX: M54.16 Radiculopathy, lumbar region (principal); Z98.890 Other specified postprocedural states
CPT/HCPCS: 72110

== ENCOUNTER → 2022-11-04 10:53 | Outpatient (BNVA) | payer MEDICARE, MEDICAID, SELFPAY | PROVIDERS: PCP Nurse Practitioner Family; Referring Provider Nurse Practitioner Family; Visit Provider Internal Medicine Cardiovascular Disease | DX: I25.10 Atherosclerotic heart disease of native coronary artery without angina pectoris (principal); E78.5 Hyperlipidemia, unspecified; I10 Essential (primary) hypertension | CPT/HCPCS: 99214; 99213 ==

== ENCOUNTER 2022-12-19 12:26 | Emergency (ER) | payer MEDICARE, MEDICAID, SELFPAY ==
[2022-12-19] VITALS (27 sets, daily range): BP systolic 101–140; BP diastolic 59–69; PULSE 80–100; RESP 14–26; TEMP 38.1; O2SAT 93
--- NOTE | 2022-12-19 12:30 | RT.EKG_ITS ---
APPROVED REPORT Exam: Resting ECG Reason for Exam: chest pain Patient Location: E HR:99 bpm ECG Measurements Heart Rate 99 AXIS ND 126 P -16 QRSd 119 QRS 30 QT 347 T 58 QTc 445 Conclusion Sinus rhythm...normal P axis, V-rate 60- 99 Incomplete right bundle branch block...QRSd >112, terminal axis(90,270)
--- NOTE | 2022-12-19 12:45 | DI.RAD_ITS ---
Exam(s) XR PORTABLE CHEST AP EXAM: XR PORTABLE CHEST AP CLINICAL HISTORY: chest pain, shortness of breath. TECHNIQUE: 2D digital imaging was performed. COMPARISON: CR XR CHEST 2V PA LATERAL from 07/25/2022 FINDINGS: Single AP portable view. Heart size is upper normal. The mediastinum is not widened. Right lung clear. Mild increased markings in the left midlung field. Scarring in left lower lobe ag ain noted. No pleural effusions. No pulmonary edema. No pneumothorax. IMPRESSION: Subtle increased markings left midlung zone and left lower lobe. No pleural effusions. No pulmonary edema. No pneumothorax. DATA REPOSITORY: RADIATION DOSE DELIVERED:
--- NOTE | 2022-12-19 13:08 | ED.GENADUL_ITS ---
Discharge Plan Disposition Patient Disposition: Home Discharge Details Clinical Impression: COVID-19, Acute renal insufficiency, Elevated liver transaminase level Primary Care Provider: Leslie Hernandez ED Provider: Yoly Wilkes Home Meds and New Rx's Prescriptions: Continued cyclobenzaprine 10 mg tablet 10 mg PO TID PRN (Reason: muscle spasm) Qty: 10 0RF nitroglycerin [Nitrostat] 0.4 mg tablet, sublingual 0.4 mg Sublingual ONCE Qty: 90 0RF isosorbide mononitrate 30 mg tablet extended release 24 hr 30 mg PO DAILY metoprolol succinate 100 MG tablet extended release 24 hr 100 mg PO DAILY aspirin 81 MG tablet,chewable 81 mg PO DAILY fluticasone propionate [Flovent HFA] 12 GM HFA aerosol inhaler 220 mcg Inhalation BID lisinopril 40 MG tablet 40 mg PO DAILY amlodipine 10 mg tablet 10 mg PO DAILY metformin 500 mg Tablet Extended Release 24hr 500 mg PO QAM naproxen 250 mg tablet 250 - 500 mg PO BID PRN (Reason: Moderate pain or swelling) Qty: 40 0RF methocarbamol 500 mg tablet 500 mg PO Q6H PRN (Reason: muscle spasm) Qty: 14 0RF Held atorvastatin 80 MG tablet 80 mg PO DAILY Hold Instructions: Resume on 12/24/22. Discharge Instructions Instructions: Viral Syndrome (ED) Additional Instructions: Take the Paxlo id as prescribed, for likely shorten the course and severity of your illness Use your inhaler, 2 puffs every 4-6 hours as needed for cough, wheeze, shortness of breath Your liver enzymes are slightly elevated, this is likely caused by your current illness I recommend having this rechecked by your doctor within the next 2 weeks Your kidney function is also increased, please make sure you are drinking at least 8-10 8 ounce glasses of fluid daily, this does not include diuretics such as coffee, alcohol, or tea Please return immediately if your oxygen level decreases below 90%, I recommend purchasing a pulse oximeter if you do not have one or she develop worsening shortness of breath or chest discomfort Please call your doctor for recheck in 24 to 48 hours Stop taking your atorvastatin while you are taking the Paxil Rubio, this is very important Discharge Data Discharge Date/Time-TO BE ENTERED AT DEPARTURE: 12/19/22 15:49 Medical Decision Making 67-year-old male presents with report of cough, lightheadedness, general malaise, fever, chills Patient with stable vitals and ambulatory sat between 93 and 95% on room air Creatinine is elevated at 1.9, suspect prerenal, given 1 L of saline, patient reports marked improvement in symptoms Also given Tylenol LFTs are elevated, this appears to be new for patient, suspect secondary to viral illness, will need this rechecked in the outpatient setting, recheck in 48 hours recommended Discussed with pharmacist, Ileana regarding Paxlovid dosing as patient is high risk with his COVID-19 diagnosis and renal adjusting was deemed appropriate with temporary hold on his atorvastatin This was discussed with patient I think he stable for discharge home at this time, he is certainly at risk for further deterioration and we reviewed this Placed on PCP follow-up for 24 to 48 hours Albuterol use at home, 2 puffs every 4-6 hours as needed for cough, wheeze, shortness of breath, no significant respiratory distress throughout this encounter Aware he will need close outpatient reassessment of his diagnostic labs Discharge home with his in stable condition at time of assessment with stable vitals, blood pressure at discharge 140/88, oxygenation 94% on room air, respiratory rate of 20, temp of 99 Medical Records Medical records reviewed: Yes I reviewed the patient's medical records. Lab Data Lab results reviewed: Yes I reviewed the patient's lab results. HPI General Date/Time Provider Initiated Documentation: 12/19/22 12:37 . HPI Narrative: This 67-year-old male presents with history of coronary artery disease, COPD, diabetes, hypertension, non-ST elevation [place] report of cough, shortness of breath, diaphoresis, fever, chills, myalgias. Patient states his symptoms started on Monday. Denies any stiff neck or headache. Denies any rashes or lesions. Denies any nausea or vomiting. Denies any sick contacts. Denies any urinary symptoms. States he feels lightheaded and weak. Related Data Home Medications Medication Instructions Recorded Confirmed aspirin 81 mg chewable tablet 81 mg PO DAILY 05/02/18 11/04/22 atorvastatin 80 mg tablet 80 mg PO DAILY 05/02/18 11/04/22 fluticasone propionate 220 220 mcg inhalation BID 05/02/18 11/04/22 mcg/actuation HFA aerosol inhaler (Flovent HFA) lisinopril 40 mg tablet 40 mg PO DAILY 05/02/18 11/04/22 metoprolol succinate 100 mg 100 mg PO DAILY 05/02/18 11/04/22 tablet,extended release 24 hr metformin 500 mg tablet,extended 500 mg PO QAM 12/12/18 11/04/22 release 24hr nitroglycerin 0.4 mg sublingual 0.4 mg sublingual ONCE #90 tab-caps 08/15/19 11/04/22 tablet (Nitrostat) naproxen 250 mg tablet 250 - 500 mg PO BID PRN Moderate 09/09/21 11/04/22 pain or swelling #40 tabs amlodipine 10 mg tablet 10 mg PO DAILY 07/05/22 11/04/22 methocarbamol 500 mg tablet 500 mg PO Q6H PRN muscle spasm #14 10/01/22 11/04/22 tabs cyclobenzaprine 10 mg tablet 10 mg PO TID PRN muscle spasm #10 10/12/22 11/04/22 tabs isosorbide mononitrate 30 mg 30 mg PO DAILY 11/04/22 11/04/22 tablet,extended release 24 hr Previous Rx's Medication Instructions Recorded nitroglycerin 0.4 mg sublingual 0.4 mg sublingual ONCE #90 tab-caps 08/15/19 tablet (Nitrostat) naproxen 250 mg tablet 250 - 500 mg PO BID PRN Moderate 09/09/21 pain or swelling #40 tabs methocarbamol 500 mg tablet 500 mg PO Q6H PRN muscle spasm #14 10/01/22 tabs cyclobenzaprine 10 mg tablet 10 mg PO TID PRN muscle spasm #10 10/12/22 tabs Allergies Allergy/AdvReac Type Severity Reaction Status Date / Time No Known Allergies Allergy Verified 10/12/22 10:39 General Stated Complaint: RespSymp JOSE: 3 PFSH All Active Problems COVID-19 (Acute) Acute renal insufficiency (Acute) Elevated liver transaminase level (Acute) Chondromalacia of right knee (Acute) Angina effort (Acute) Coronary atherosclerosis (Acute) Hypertension (Acute) Hyperlipidemia (Acute) Unstable angina (Acute) UTI (urinary tract infection) (Acute) Lumbosacral spondylosis without myelopathy (Acute) Lumbosacral radiculopathy (Acute) Acute medial meniscus tear of right knee (Acute ~04/2021) S/P R knee arthroscopy with partial medial meniscectomy: 09/09/2021 Medical History Arthrofibrosis of knee joint Back pain with history of spinal surgery CAD (coronary artery disease) COPD (chronic obstructive pulmonary disease) Diabetes mellitus Former smoker History of angina HTN (hypertension) Hx of gastric ulcer Hx of non-ST elevation myocardial infarction (NSTEMI) Hyperlipidemia Laceration of finger Low back pain Sleep disorder Surgical History Rotator cuff arthropathy of right shoulder Social History Smoking/Tobacco Use Status: Former Tobacco Use Quit Date: 08/01/16 Pack-years: 60 Tobacco: How many years used: 30 Smoking risk assessment performed?: Yes Alcohol Intake: never Drug use: Never Substance use type: does not use Current gender identity: male What type of physical activity do you participate in: none Do you feel safe at home: Yes Do you feel safe in your relationship?: Yes Exam Const General: cooperative, comfortable and no acute distress Orientation: alert and oriented x3 HENMT Other: moist mucous membranes Eyes Pupils: PERRL Resp Effort & Inspection: normal respiratory effort Auscultation: clear to auscultation bilaterally Cardio Rate: regular rate Rhythm: regular rhythm GI Inspection: normal to inspection Other: non-tender abdominal exam Skin General skin exam: no rashes or lesions noted Neuro General: patient alert and patient oriented x3 Cranial Nerves: CN's II-XI intact bilaterally and tongue midline Cognition: normal cognition Speech: speech normal Extrem Other: no calf swelling or tenderness Course Vital Signs Vital signs: Vital Signs Temperature 38.1 C H 12/19/22 12:30 Pulse 100 H 12/19/22 12:30 Respiratory Rate 20 12/19/22 12:30 Blood Pressure 101/62 12/19/22 12:30 Pulse Oximetry 93 12/19/22 12:30 Temperature 38.1 C H 12/19/22 12:30 Temperature Source Tympanic 12/19/22 12:30 Pulse 100 H 12/19/22 12:30 Respiratory Rate 20 12/19/22 12:30 Respiratory Effort Short of Breath 12/19/22 13:03 Blood Pressure 101/62 12/19/22 12:30 Blood Pressure Position Sitting 12/19/22 12:30 Pulse Oximetry 93 12/19/22 12:30 Oxygen Delivery Method Room Air 12/19/22 12:30 Oxygen Flow Rate 0 12/19/22 12:30 Pain Level 0 12/19/22 12:30 Lab/Test Results Lab/Test Results: 12/19/22 12:54 Blood Blood Culture - Pending 12/19/22 12:54 Blood Blood Culture - Pending
[2022-12-19] MEDS: Normal Saline 1,000 ML 1000 ML IV (13:26)
[2022-12-19] MEDS: Acetaminophen 325 MG TAB 650 MG PO (13:26)
[2022-12-19 13:29] LABS: Abs Immature Grans 0.05 10^3/uL (0.0-0.06); Absolute Basophil Count 0.04 10^3/uL (0.0-0.2); Absolute Lymphocyte Count 1.74 10^3/uL (1.2-3.4); Absolute Monocyte Count 1.84 10^3/uL (0.1-0.8); Absolute Neutrophil Count 6.75 10^3/uL (1.2-6.7); Basophils % 0.4; HCT 43.4 % (40.0-50.0); HGB 14.7 g/dL (13.5-17.5); Immature Grans % 0.5; Lactate 1.3 mmol/L (0.6-1.4); Lymphocytes % 16.7; MCH 28.4 pg (27.0-33.0); MCHC 33.9 % (32.0-36.0); MCV 84 fL (80-95); MPV 10.4 fL (8.0-11.0); Monocytes % 17.7; Neutrophils % 64.7; Platelet Count 201 10^3/uL (130-400); RBC 5.17 10^6/uL (4.36-5.78); RDW 13.8 % (11.8-14.1); RDW-SD 42.5 fL; WBC 10.42 10^3/uL (4.4-10.8)
[2022-12-19 13:52] LABS: ALT 126 U/L (16-63); AST 197 U/L (15-37); Albumin 3.9 g/dL (3.4-5.0); Alkaline Phosphatase 54 U/L (46-116); Anion Gap 12.9 mmol/L (3-11); BUN 27 mg/dL (7-18); Bilirubin, Total 0.7 mg/dL (0.2-1.0); CO2 22.1 mmol/L (21.0-32.0); CREATININE 1.9 mg/dL (0.70-1.30); Calcium 9.2 mg/dL (8.5-10.1); Chloride 101 mmol/L (98-107); Estimated GFR 38.19 (mL/min/1.73m2); Glucose 136 mg/dL (74-106); Potassium 4.6 mmol/L (3.5-5.1); Sodium 136 mmol/L (136-145)
[2022-12-19 14:06] LABS: Diff Comment Agrees w/ Instrument; RBC Morphology Normal
[2022-12-19 14:07] LABS: Influenza A PCR Negative (Negative); Influenza B PCR Negative (Negative); RSV PCR Negative (Negative)
[2022-12-19 14:28] LABS: COVID-19 PCR Positive (Negative)
[2022-12-19 14:29] LABS: Source Nasopharynx
[2022-12-19 14:55] LABS: Lipase 71 U/L (16-77)
--- NOTE | 2022-12-20 07:18 | NUR.NOTE ---
Nursing Note:Accessed patient chart to determine how many EKG orders were in the chart from the ED. There was an outstanding EKG in ordered status. There are no EKG's in the [facility] system that are outstanding. EKG order was deleted.
== END 2022-12-19 15:49 | disposition home or self-care (01) ==
PROVIDERS: Emergency Provider Physician Assistant; PCP Nurse Practitioner Family
DX: U07.1 COVID-19 (principal); N28.9 Disorder of kidney and ureter, unspecified; R74.01 Elevation of levels of liver transaminase levels; R79.89 Other specified abnormal findings of blood chemistry; I10 Essential (primary) hypertension; E11.9 Type 2 diabetes mellitus without complications; I25.10 Atherosclerotic heart disease of native coronary artery without angina pectoris; J44.9 Chronic obstructive pulmonary disease, unspecified; I25.2 Old myocardial infarction; Z79.82 Long term (current) use of aspirin; Z79.51 Long term (current) use of inhaled steroids; Z79.84 Long term (current) use of oral hypoglycemic drugs
CPT/HCPCS: 36415; 80053; 83690; 87040; 87637; 93005; 96360; 96361; 99284; 99285; 71045; 83605; 85025; 93010

== ENCOUNTER 2022-12-22 14:18 | Outpatient (REF) | payer MEDICARE, MEDICAID, SELFPAY ==
[2022-12-22 17:26] LABS: Anion Gap 5.9 mmol/L (3-11); BUN 22 mg/dL (7-18); CO2 27.1 mmol/L (21.0-32.0); CREATININE 1.3 mg/dL (0.70-1.30); Calcium 9.3 mg/dL (8.5-10.1); Chloride 101 mmol/L (98-107); Estimated GFR 60.21 (mL/min/1.73m2); Glucose 139 mg/dL (74-106); Potassium 4.3 mmol/L (3.5-5.1); Sodium 134 mmol/L (136-145)
== END 2022-12-22 14:19 | disposition home or self-care (01) ==
LOC: NCHCN 14:18
PROVIDERS: PCP Nurse Practitioner Family; Visit Provider Nurse Practitioner Family
DX: R89.9 Unspecified abnormal finding in specimens from other organs, systems and tissues (principal)
CPT/HCPCS: 80048

== ENCOUNTER 2023-01-04 16:46 | Outpatient (REF) | payer MEDICARE, MEDICAID, SELFPAY ==
[2023-01-04 16:04] LABS: ALT 45 U/L (16-63); AST 42 U/L (15-37); Albumin 3.7 g/dL (3.4-5.0); Alkaline Phosphatase 71 U/L (46-116); Bilirubin, Total 0.5 mg/dL (0.2-1.0); Sodium 142 mmol/L (136-145); Total Protein 7.6 g/dL (6.4-8.2)
[2023-01-04 16:36] LABS: Bilirubin, Direct 0.2 mg/dL (0.0-0.2)
== END 2023-01-04 16:47 | disposition home or self-care (01) ==
LOC: NCHCN 16:46
PROVIDERS: PCP Nurse Practitioner Family; Visit Provider Nurse Practitioner Family
DX: R89.8 Other abnormal findings in specimens from other organs, systems and tissues (principal); R79.89 Other specified abnormal findings of blood chemistry
CPT/HCPCS: 80076; 84295

== ENCOUNTER 2023-07-24 16:51 | Outpatient (REF) | payer MEDICARE, MEDICAID, SELFPAY ==
[2023-07-24 16:01] LABS: Abs Immature Grans 0.02 10^3/uL (0.0-0.06); Absolute Basophil Count 0.05 10^3/uL (0.0-0.2); Absolute Eosinophil Count 0.16 10^3/uL (0.0-0.7); Absolute Lymphocyte Count 1.94 10^3/uL (1.2-3.4); Absolute Monocyte Count 0.87 10^3/uL (0.1-0.8); Absolute Neutrophil Count 5.79 10^3/uL (1.2-6.7); Basophils % 0.6; Eosinophils % 1.8; HCT 42.3 % (40.0-50.0); Immature Grans % 0.2; MCH 28.1 pg (27.0-33.0); MCHC 33.1 % (32.0-36.0); MCV 85 fL (80-95); Monocytes % 9.9; Neutrophils % 65.5; Platelet Count 201 10^3/uL (130-400); RBC 4.98 10^6/uL (4.36-5.78); RDW 13.6 % (11.8-14.1); RDW-SD 41.8 fL; WBC 8.83 10^3/uL (4.4-10.8)
[2023-07-24 16:17] LABS: ALT 38 U/L (16-63); AST 35 U/L (15-37); Alkaline Phosphatase 71 U/L (46-116); Anion Gap 7.1 mmol/L (3-11); BUN 17 mg/dL (7-18); Bilirubin, Total 0.6 mg/dL (0.2-1.0); CO2 27.9 mmol/L (21.0-32.0); CREATININE 1.2 mg/dL (0.70-1.30); Calcium 9.9 mg/dL (8.5-10.1); Chloride 103 mmol/L (98-107); Estimated GFR 65.87 (mL/min/1.73m2); Glucose 150 mg/dL (74-106); Potassium 4.7 mmol/L (3.5-5.1); Sodium 138 mmol/L (136-145); Total Protein 7.6 g/dL (6.4-8.2)
[2023-07-27 10:51] LABS: ESR (LRH) 20 mm/hr
== END 2023-07-24 16:52 | disposition home or self-care (01) ==
LOC: NCHCN 16:51
PROVIDERS: PCP Nurse Practitioner Family; Visit Provider Nurse Practitioner Family
DX: H53.8 Other visual disturbances (principal)
CPT/HCPCS: 80053; 85652; 85025; 86140

== ENCOUNTER 2023-07-26 13:31 | Emergency (ER) | payer MEDICARE, MEDICAID, SELFPAY ==
[2023-07-26 13:37] VITALS: BP 198/111; PULSE 89; RESP 15; TEMP 36.6; O2SAT 97
--- NOTE | 2023-07-26 13:48 | W.ED.GENAD ---
Discharge Plan Disposition Patient Disposition: Home Discharge Details Clinical Impression: Urinary tract infection, Migraine syndrome Primary Care Provider: Leslie Hernandez ED Provider: Angel Sanches Home Meds and New Rx's Prescriptions: New cephalexin 500 mg tablet 500 mg PO QID 10 Days Qty: 40 0RF Continued nitroglycerin [Nitrostat] 0.4 mg tablet, sublingual 0.4 mg Sublingual ONCE Qty: 90 0RF isosorbide mononitrate 30 mg tablet extended release 24 hr 30 mg PO DAILY atorvastatin 80 MG tablet 80 mg PO DAILY Hold Instructions: Resume on 12/24/22. metoprolol succinate 100 MG tablet extended release 24 hr 100 mg PO DAILY aspirin 81 MG tablet,chewable 81 mg PO DAILY fluticasone propionate [Flovent HFA] 12 GM HFA aerosol inhaler 220 mcg Inhalation BID lisinopril 40 MG tablet 40 mg PO DAILY amlodipine 10 mg tablet 10 mg PO DAILY metformin 500 mg Tablet Extended Release 24hr 500 mg PO QAM naproxen 250 mg tablet 250 - 500 mg PO BID PRN (Reason: Moderate pain or swelling) Qty: 40 0RF Discharge Instructions Instructions: Cephalexin (By mouth), Urinary Tract Infection in Men (ED), General Headache (ED) Additional Instructions: You were seen in the emergency department for your intermittent right-sided headaches of months duration with some blurriness of vision to your right eye during headache exacerbations. This is likely a complex migraine syndrome. The CT of your head shows no intracranial bleeding, no mass effect, the angiogram of your head and neck shows no significant occlusions or stenosis, you do have an incidental finding of a mild to moderate-sized plaque in your left carotid artery that needs follow-up by your primary care provider. Incidentally on your urinalysis we found that you have a UTI and I have sent a course of cephalexin to the [facility] in [place] to treat your UTI. Your urine culture is pending and should this antibiotic be ineffective against the bacteria causing your UTI we will change her antibiotic by calling you. Please follow-up with your primary care provider closely to better manage your hypertension, he may also prescribe you sumatriptan and a daily migraine prevention medication. Otherwise when you feel a migraine coming on please attempt to take 1000 mg of Tylenol every 6 hours, 2 ibuprofen or 1 Aleve-not both of these medications they are both anti-inflammatories. Try to aggressively hydrate by drinking 2 to 3 glasses of water immediately, you may trial taking a p.o. Benadryl tablet and retiring to a dark room with low levels of visual and auditory stimuli. If this does not resolve your headache, you may discuss being referred to a neurologist for possible MRI for complex migraine and starting more advanced migraine medications like ergotamines. Please return to the emergency department for any sudden onset severe headaches with worsening visual changes not responding to any medications. Any numbness or tingling or weakness on either side of your body, any chest pain or palpitations, any loss of vision, any bouts of vertigo or slurred speech. Medical Decision Making Assessment: 68-year-old male with known CAD presents with severe intermittent headaches for the past 2 months, he has uncontrolled hypertension with higher than normal readings 170s over 100 on arrival, normal neuro exam, hints exam negative, no temporal tenderness to light touch, no kathleen-paresis or paresthesias, has intermittent blurry vision with these headaches but no overt floaters or loss of vision. Findings are not consistent with cerebrovascular accident or TIA, the patient has no signs or symptoms of temporal arteritis, his vision is grossly normal with normal anterior chambers I do not suspect acute angle glaucoma, the patient has syndrome classic for migraine or cluster headache with repeated right-sided headache for months the stable nature without other systemic signs of illness for meningismus. He does have uncontrolled hypertension. Diagnostic studies of: CBC w/o diff, BMP/UA for renal function/proteinuria query due to uncontrolled HTN, CRP/ESR for temporal arteritis possiblity -CBC benign -BMP shows renal function WNL -UA shows proteinuria of 30 which is chronic with past lab values, shows nitrites and leuk esterase- UTI, will cover with ABX upon discharge- Keflex, with Cx pending at d/c. -CRP/ESR elevated, ordering CTA to examine possible vasculitis as source of GUY- likely due to UTI on UA -CTA Head & Neck shows L carotid plaque causing mild to moderate stenosis. No CVA or ICH suspected. Interventions of: 1L IV NS, IV headache cocktail of Toradol, diphenhydramine, Reglan, dexamethasone, PO Tylenol & Sumatriptan. ED Course: Patient in no acute distress; has a migraine syndrome with uncontrolled HTN not at level of hypertensive urgency or emergency. Tolerated headache cocktail of medicines with relief of symptoms. Recommend he trial aggressive at-home PO treatment of migraine syndrome with PO Tylenol & Aleve at first sign of headache, aggressive PO hydration, trial of PO benadryl and rest in dark room- discussed trying Rx medicines like Sumatriptan or further Ergotamines if non-effective by PCP visit or Neurology consult. Recommend PCP follow-up for HTN med adjustment. Follow-up with [facility] for dilated eye exam. Patient has non-specific elevated CRP, possibly linked to UTI, no specific physical exam findings to suggest temporal arteritis is more likely than migraine syndrome. Treating UTI with antibiotics sent to [facility] in [place], recommend close follow-up. Counseled on strict return criteria for signs of thunderclap GUY, floaters or worsening vision, paresthesias, vertigo, chest pain, or other emergent concerns. Differential Diagnosis Differential Diagnosis: Cluster Headache, Migraine Syndrome, NOT CVA, Unlikely GCA, HTN Medical Records Medical records reviewed: Yes I reviewed the patient's medical records. Imaging Data Radiologic Study: My impression: No ICH Radiologist's impression: EXAM: CT BRAIN NECK CTA CLINICAL HISTORY: R-sided GUY, elevated CRP/ESR. TECHNIQUE: Imaging Protocol: Axial CT angiography was performed with multi-slice acquisition and multi-planar and 3D reconstructions. CONTRAST MATERIAL: Intravenous: Omnipaque 350 Contrast volume:100 ml COMPARISON: CT CT CHEST LUNG CANCER SCREEN from 03/06/2020 FINDINGS: CT Head W/O and W contrast: Ventricles and Extra axial spaces: Normal in size and morphology for the patient's age. Hemorrhage: None. Cerebral parenchyma: Moderate atrophy. No evidence of infarct or mass. Midline shift: None. Brainstem/Cerebellum: Normal. Calvarium: Normal. Visualized Paranasal sinuses/Mastoids: Mucous retention bilateral maxillary sinuses. Soft Tissues: Unremarkable. Enhancement: Normal. CTA Brain W: Internal Carotid Arteries: Petrous: Normal. Cavernous: Normal. Cerebral: Normal. Middle Cerebral Arteries: Right: No aneurysm, occlusion or significant stenosis. Left: No aneurysm, occlusion or significant stenosis. Anterior Cerebral Arteries: Right: No aneurysm, occlusion or significant stenosis. Left: No aneurysm, occlusion or significant stenosis. Posterior cerebral Arteries: Right: No aneurysm, occlusion or significant stenosis. Left: No aneurysm, occlusion or significant stenosis. Vertebral Arteries: Right: No aneurysm, occlusion or significant stenosis. Left: No aneurysm, occlusion or significant stenosis. Basilar Artery: No aneurysm, occlusion or significant stenosis. CTA Neck W: Common Carotid: Right: No dissection, occlusion or significant stenosis. Left: No dissection, occlusion or significant stenosis. External Carotid: Right: No dissection, occlusion or significant stenosis. Left: No dissection, occlusion or significant stenosis. Internal Carotid: Right: Mild plaque. No significant stenosis. No dissection, occlusion or significant stenosis. Left: Plaque at common carotid bulb and proximal internal carotid artery causing mild to moderate stenosis in the proximal internal carotid artery.. Vertebral Artery: Right: No dissection, occlusion or significant stenosis. Left: No dissection, occlusion or significant stenosis. Lung Apices: Respiratory motion. Emphysematous changes. Bones: No acute abnormality. Degenerative changes throughout. Soft Tissues: Normal. IMPRESSION: 1. CTA brain: No evidence of vascular occlusion, significant stenosis or aneurysm. 2. CT brain: Atrophy. No evidence of infarct or mass. 3. CTA neck: Calcific plaque at the left prox internal carotid artery causing eofb-tq-[id number] stenosis. No evidence of carotid or vertebral dissection. RADIATION DOSE DELIVERED: Total DLP DATA REPOSITORY: All CT scans at this facility are submitted to the National Radiology Data Registry (NRDR) Dose Index Registry (DIR) with the [employer] (ACR). RADIATION OPTIMIZATION: All CT scans at this facility use at least one of these dose optimization techniques: automated exposure control; mA and/or kV adjustment per patient size (includes targeted exams where dose is matched to clinical indication); or iterative reconstruction. [id number]: Total DLP = 0.00 mGy-cm Ordered By: Angel Sanches CC: Dictated By: Tamanna Murphy M.D. 07/26/231656 <Electronically signed by Tamanna Murphy M.D. in [place]> 07/26/231656 Transcribed By: Tamanna Murphy 07/26/231656 Lab Data Labs: 07/26/23 16:08 Urine - Reflex from Ua Urine Culture - Pending Laboratory Tests Range/Units 07/26/23 07/26/23 13:53 16:08 WBC (4.4-10.8) 10^3/uL 8.00 RBC (4.36-5.78) 10^6/uL 5.17 Hgb (13.5-17.5) g/dL 14.5 Hct (40.0-50.0) % 43.6 MCV (80-95) fL 84 MCH (27.0-33.0) pg 28.0 MCHC (32.0-36.0) % 33.3 RDW (11.8-14.1) % 13.4 Plt Count (130-400) 10^3/uL 191 MPV (8.0-11.0) fL 10.8 ESR (0-20) mm/hr 21 H Sodium (136-145) mmol/L 136 Potassium (3.5-5.1) mmol/L 4.2 Chloride (98-107) mmol/L 103 Carbon Dioxide (21.0-32.0) mmol/L 26.0 Anion Gap (3-11) mmol/L 7.0 BUN (7-18) mg/dL 15 Creatinine (0.70-1.30) mg/dL 1.1 Est GFR (CKD-EPI 2020) (mL/min/1.73m2) 73.12 Glucose (74-106) mg/dL 100 Calcium (8.5-10.1) mg/dL 9.5 Total Bilirubin (0.2-1.0) mg/dL 0.5 AST (15-37) U/L 36 ALT (16-63) U/L 37 Alkaline Phosphatase (46-116) U/L 81 C-Reactive Protein (0.0-0.3) mg/dL 0.86 H Total Protein (6.4-8.2) g/dL 8.1 Albumin (3.4-5.0) g/dL 4.0 Urine Color (Yellow) Yellow Urine Clarity (Clear) Cloudy Urine pH (5-8) 6.0 Ur Specific [place] (1.005-1.025) 1.020 Urine Protein (Negative) mg/dL 30 H Urine Ketones (Negative) mg/dL Negative Urine Blood (Negative) Trace-intact H Urine Nitrite (Negative) Positive H Urine Bilirubin (Negative) Negative Urine Urobilinogen (Up to 0.2) mg/dL 0.2 Ur Leukocyte Esterase (Negative) Large H Urine RBC Not Applicable Urine WBC (0-5) HPF >50 H Ur Epithelial Cells Not Applicable Urine Crystals Not Applicable Urine Bacteria Not Applicable Urine Mucus Not Applicable Ur Culture Indicated? Yes Urine Glucose (Negative) mg/dL Negative HPI General Date/Time Provider Initiated Documentation: 07/26/23 13:45. HPI Narrative: Patient is a 68-year-old male who presents by personal vehicle with his for reported 2+ month onset of severe intermittent right-sided headaches, states it feels like the nail is being driven behind his right eye, he reports intermittent blurry vision in the right eye while these headaches occur but not with today's severe headache. He rates the pain a 10 out of 10 for right-sided headache pain, he denies tenderness to light touch, his has not independent historian as well as himself denies any further visual changes like floaters or blindness, denies any numbness/tingling, denies any gait abnormalities or slurred speech or altered mental status, denies any fevers with these headaches. The headaches are palliated by Aleve, the patient tolerates this medication well. Headaches are provoked by nothing specific, they often come on very quickly last for 2 to 3 hours before subsiding. He does report that he has often getting poor sleep and waking up every 3 hours or so. Patient does endorse that his grand-daughter has complex migraine syndrome and has an appointment with [facility] for possible Botox treatment for this condition. Patient is not anticoagulated. Related Data Home Medications Medication Instructions Recorded Confirmed aspirin 81 mg chewable tablet 81 mg PO DAILY 05/02/18 07/26/23 atorvastatin 80 mg tablet 80 mg PO DAILY 05/02/18 07/26/23 fluticasone propionate 220 220 mcg inhalation BID 05/02/18 07/26/23 mcg/actuation HFA aerosol inhaler (Flovent HFA) lisinopril 40 mg tablet 40 mg PO DAILY 05/02/18 07/26/23 metoprolol succinate 100 mg 100 mg PO DAILY 05/02/18 07/26/23 tablet,extended release 24 hr metformin 500 mg tablet,extended 500 mg PO QAM 12/12/18 07/26/23 release 24hr nitroglycerin 0.4 mg sublingual 0.4 mg sublingual ONCE #90 tab-caps 08/15/19 07/26/23 tablet (Nitrostat) naproxen 250 mg tablet 250 - 500 mg (1 - 2 x 250 mg) PO 09/09/21 07/26/23 BID PRN Moderate pain or swelling #40 tabs amlodipine 10 mg tablet 10 mg PO DAILY 07/05/22 07/26/23 isosorbide mononitrate 30 mg 30 mg PO DAILY 11/04/22 07/26/23 tablet,extended release 24 hr cephalexin 500 mg tablet 500 mg PO QID UTI 10 days #40 tabs 07/26/23 Previous Rx's Medication Instructions Recorded nitroglycerin 0.4 mg sublingual 0.4 mg sublingual ONCE #90 tab-caps 08/15/19 tablet (Nitrostat) naproxen 250 mg tablet 250 - 500 mg (1 - 2 x 250 mg) PO 09/09/21 BID PRN Moderate pain or swelling #40 tabs cephalexin 500 mg tablet 500 mg PO QID UTI 10 days #40 tabs 07/26/23 Allergies Allergy/AdvReac Type Severity Reaction Status Date / Time No Known Allergies Allergy Verified 10/12/22 10:39 General Stated Complaint: Headache JOSE: 2 PFSH All Active Problems Migraine syndrome (Acute) Urinary tract infection (Acute) COVID-19 (Acute) Chondromalacia of right knee (Acute) Angina effort (Acute) Coronary atherosclerosis (Acute) 01/31/23 Pt had Cardiac Cath at [facility] 08/09/22=3VD (LAD, LCX, RCA) plan to treat medically RH Hypertension (Acute) Hyperlipidemia (Acute) Unstable angina (Acute) UTI (urinary tract infection) (Acute) Lumbosacral spondylosis without myelopathy (Acute) Lumbosacral radiculopathy (Acute) Acute medial meniscus tear of right knee (Acute ~04/2021) S/P R knee arthroscopy with partial medial meniscectomy: 09/09/2021 Medical History Arthrofibrosis of knee joint Back pain with history of spinal surgery CAD (coronary artery disease) COPD (chronic obstructive pulmonary disease) Diabetes mellitus Former smoker History of angina HTN (hypertension) Hx of gastric ulcer Hx of non-ST elevation myocardial infarction (NSTEMI) Hyperlipidemia Laceration of finger Low back pain Sleep disorder Surgical History Rotator cuff arthropathy of right shoulder Social History Smoking/Tobacco Use Status: Former Tobacco Use Quit Date: 08/01/16 Pack-years: 60 Tobacco: How many years used: 30 Smoking risk assessment performed?: Yes Alcohol Intake: never Drug use: Never Substance use type: does not use Housing: house Current gender identity: male What type of physical activity do you participate in: none Do you feel safe at home: Yes Do you feel safe in your relationship?: Yes Exam Const General: cooperative, healthy appearing and no acute distress Nutritional Appearance: overweight Orientation: alert, awake, oriented to person, oriented to place and oriented to time HENKY Head: normocephalic, atraumatic, no Sheldon's sign, no contusions, no scalp tenderness and no temporal artery tenderness Ears: hearing grossly normal bilaterally General nose exam: nares normal Face and sinus: face symmetric Mouth: oral mucosae normal Eyes General: appearance normal, both eyes and all related structures Visual Chandler: normal visual chandler by confrontation Pupils: PERRL and accommodation normal EOM: EOM intact bilaterally and No nystagmus Direct ophthalmoscopy: normal light reflex Other: Hints exam within normal limits, no skew, negative head impulse Neck Carotids: no bruits Resp Effort & Inspection: normal respiratory effort and able to speak in complete sentences Auscultation: clear to auscultation bilaterally Cardio Jugular venous pressure: no JVD Rate: regular rate Heart Sounds: S1 normal and S2 normal Pulses: radial pulses present Neuro General: patient alert, patient awake, patient oriented x3, moves all extremities, normal light touch, pain and propioception, no focal motor deficits and CN's II-XI intact bilaterally Cranial Nerves: accommodation normal, EOM intact bilaterally, tongue midline, able to rotate head bilaterally, able to elevate shoulders bilaterally and no nystagmus Cognition: normal cognition Speech: speech normal Gait: normal gait Motor: strength 5/5 throughout, no pronator drift and no fasciculations Sensory Exam: no sensory deficits noted Coordination: [id number] test normal, [id number] test normal and tandem gait normal Course Vital Signs Vital signs: Vital Signs Temperature 36.6 C 07/26/23 13:37 Pulse 89 07/26/23 13:37 Respiratory Rate 15 07/26/23 13:37 Blood Pressure 198/111 H 07/26/23 13:37 Pulse Oximetry 97 07/26/23 13:37 Temperature 36.6 C 07/26/23 13:37 Temperature Source Oral 07/26/23 13:37 Pulse 89 07/26/23 13:37 Respiratory Rate 15 07/26/23 13:37 Blood Pressure 198/111 H 07/26/23 13:37 Blood Pressure Position Sitting 07/26/23 13:37 Pulse Oximetry 97 07/26/23 13:37 Oxygen Delivery Method Room Air 07/26/23 13:37 Oxygen Flow Rate 0 07/26/23 13:37 Pain Level 0 07/26/23 13:37
[2023-07-26 13:56] VITALS: BP 172/96; PULSE 83; RESP 16; TEMP 36.6; O2SAT 98
[2023-07-26] MEDS: Ketorolac 30 MG/ML VIAL 15 MG IVP (14:33)
[2023-07-26] MEDS: diphenhydrAMINE 50 MG/ML VIAL 25 MG IVP (14:33)
[2023-07-26] MEDS: Dexamethasone 10 MG/ML VIAL IVP (14:33)
[2023-07-26] MEDS: Metoclopramide 10 MG/2 ML VIAL 5 MG IVP (14:33)
[2023-07-26] MEDS: Acetaminophen 500 MG TAB 1000 MG PO (14:34)
[2023-07-26] MEDS: SUMAtriptan 25 MG TAB PO (14:34)
[2023-07-26] MEDS: Normal Saline 1,000 ML 1000 ML IV (14:42)
[2023-07-26 14:54] LABS: HCT 43.6 % (40.0-50.0); HGB 14.5 g/dL (13.5-17.5); MCHC 33.3 % (32.0-36.0); MCV 84 fL (80-95); MPV 10.8 fL (8.0-11.0); Platelet Count 191 10^3/uL (130-400); RBC 5.17 10^6/uL (4.36-5.78); RDW 13.4 % (11.8-14.1); RDW-SD 41.6 fL
[2023-07-26 15:06] LABS: C-Reactive Protein 0.86 mg/dL (0.0-0.3)
[2023-07-26 15:08] LABS: ALT 37 U/L (16-63); AST 36 U/L (15-37); Alkaline Phosphatase 81 U/L (46-116); BUN 15 mg/dL (7-18); Bilirubin, Total 0.5 mg/dL (0.2-1.0); CREATININE 1.1 mg/dL (0.70-1.30); Calcium 9.5 mg/dL (8.5-10.1); Chloride 103 mmol/L (98-107); Estimated GFR 73.12 (mL/min/1.73m2); Glucose 100 mg/dL (74-106); Potassium 4.2 mmol/L (3.5-5.1); Sodium 136 mmol/L (136-145); Total Protein 8.1 g/dL (6.4-8.2)
[2023-07-26 15:12] LABS: ESR 21 mm/hr (0-20)
--- NOTE | 2023-07-26 15:15 | DI.CT_ITS ---
Exam(s) CT BRAIN NECK CTA EXAM: CT BRAIN NECK CTA CLINICAL HISTORY: R-sided GUY, elevated CRP/ESR. TECHNIQUE: Imaging Protocol: Axial CT angiography was performed with multi-slice acquisition and mu lti-planar and 3D reconstructions. CONTRAST MATERIAL: Intravenous: Omnipaque 350 Contrast volume:100 ml COMPARISON: CT CT CHEST LUNG CANCER SCREEN from 03/06/2020 FINDINGS: CT Head W/O and W contrast: Ventricles and Extra axial spaces: Normal in size and morphology for the patient's age. Hemorrhage: None. Cerebral parenchyma: Moderate atrophy. No evidence of infarct or mass. Midline shift: None. Brainstem/Cerebellum: Normal. Calvarium: Normal. Visualized Paranasal sinuses/Mastoids: Mucous retention bilateral maxillary sinuses. Soft Tissues: Unremarkable. Enhancement: Normal. CTA Brain W: Internal Carotid Arteries: Petrous: Normal. Cavernous: Normal. Cerebral: Normal. Middle Cerebral Arteries: Right: No aneurysm, occlusion or significant stenosis. Left: No aneurysm, occlusion or significant stenosis. Anterior Cerebral Arteries: Right: No aneurysm, occlusion or significant stenosis. Left: No aneurysm, occlusion or significant stenosis. Posterior cerebral Arteries: Right: No aneurysm, occlusion or significant stenosis. Left: No aneurysm, occlusion or significant stenosis. Vertebral Arteries: Right: No aneurysm, occlusion or significant stenosis. Left: No aneurysm, occlusion or significant stenosis. Basilar Artery: No aneurysm, occlusion or significant stenosis. CTA Neck W: Common Carotid: Right: No dissection, occlusion or significant stenosis. Left: No dissection, occlusion or significant stenosis. External Carotid: Right: No dissection, occlusion or significant stenosis. Left: No dissection, occlusion or significant stenosis. Internal Carotid: Right: Mild plaque. No significant stenosis. No dissection, occlusion or significant stenosis. Left: Plaque at common carotid bulb and proximal internal carotid artery causing mild to moderate st enosis in the proximal internal carotid artery.. Vertebral Artery: Right: No dissection, occlusion or significant stenosis. Left: No dissection, occlusion or significant stenosis. Lung Apices: Respiratory motion. Emphysematous changes. Bones: No acute abnormality. Degenerative changes throughout. Soft Tissues: Normal. IMPRESSION: 1. CTA brain: No evidence of vascular occlusion, significant stenosis or aneurysm. 2. CT brain: Atrophy. No evidence of infarct or mass. 3. CTA neck: Calcific plaque at the left prox internal carotid artery causing [id number] stenos is. No evidence of carotid or vertebral dissection. RADIATION DOSE DELIVERED: Total DLP DATA REPOSITORY: All CT scans at this facility are submitted to the National Radiology Data Registry (NRDR) Dose Index Registry (DIR) with the [employer] (ACR). RADIATION OPTIMIZATION: All CT scans at this facility use at least one of these dose optimization te chniques: automated exposure control; mA and/or kV adjustment per patient size (includes targeted exa ms where dose is matched to clinical indication); or iterative reconstruction.
[2023-07-26 16:20] LABS: Bilirubin Negative (Negative); Blood Trace-intact (Negative); Clarity Cloudy (Clear); Glucose Negative (Negative); Ketones Negative (Negative); Leukocyte Esterase Large (Negative); Nitrite Positive (Negative); Urobilinogen 0.2 mg/dL (Up to 0.2)
[2023-07-26] MEDS: Omnipaque 350 MG/ML 100 ML BTL IJ (16:25)
[2023-07-26] MEDS: Normal Saline - Diluent 50 ML VIAL IJ (16:27)
[2023-07-26 16:34] LABS: C & S Indicated? Yes; WBC >50 HPF (0-5)
[2023-07-26 17:23] VITALS: BP 169/81; PULSE 79; RESP 16; O2SAT 96
== END 2023-07-26 17:24 | disposition home or self-care (01) ==
PROVIDERS: Emergency Provider Physician Assistant; PCP Nurse Practitioner Family
DX: H53.8 Other visual disturbances; G43.909 Migraine, unspecified, not intractable, without status migrainosus; N39.0 Urinary tract infection, site not specified; B96.20 Unspecified Escherichia coli [E. coli] as the cause of diseases classified elsewhere; I65.22 Occlusion and stenosis of left carotid artery; I10 Essential (primary) hypertension; I25.2 Old myocardial infarction; E78.5 Hyperlipidemia, unspecified
CPT/HCPCS: 70496; 70498; 80053; 85027; 85652; 87077; 96361; 96372; 96374; 96375; 99285; 81003; 81015; 86140; 87086; 87186; 99284; J1100; J1200; J1885; J2765; J3490

== ENCOUNTER 2023-10-10 15:29 | Outpatient (REF) | payer MEDICARE, SELFPAY ==
[2023-10-10 17:32] LABS: ALT 67 U/L (16-63); AST 66 U/L (15-37); HDL Cholesterol 34 mg/dL (40-60); LDL CHOLESTEROL 58 mg/dL (<100)
[2023-10-10 17:50] LABS: Hemoglobin A1C 7.2 % (<5.7)
[2023-10-10 18:26] LABS: Creatine Kinase 158 U/L (39-308)
== END 2023-10-10 15:30 | disposition home or self-care (01) ==
LOC: NCHCN 15:29
PROVIDERS: PCP Nurse Practitioner Family; Visit Provider Nurse Practitioner Family
DX: E11.9 Type 2 diabetes mellitus without complications (principal)
CPT/HCPCS: 82550; 83721; 83036; 83718; 84450; 84460

== ENCOUNTER → 2023-11-03 10:43 | Outpatient (BNVA) | payer OTHER, SELFPAY | PROVIDERS: PCP Nurse Practitioner Family; Visit Provider Internal Medicine Interventional Cardiology | DX: I25.10 Atherosclerotic heart disease of native coronary artery without angina pectoris (principal); E78.5 Hyperlipidemia, unspecified; I10 Essential (primary) hypertension | CPT/HCPCS: 99213 ==

== ENCOUNTER 2024-07-25 10:55 | Outpatient (REF) | payer OTHER, SELFPAY ==
--- NOTE | 2024-07-25 09:15 | SKI_PTH ---
PATIENT: Bala Lemus LOC: [facility] U#:[id number] AGE/SX: 69/M ROOM: RE07/25/[address]: Nikkie Turner V : 1955 BED: DIS: 07/25/2024 SPEC #: [id number] RECD: 07/25/24 17:23 STATUS: WILLIE REWilmer #: [id number] ABIMAEL: 07/25/24 09:[address]: Nikkie Turner V DEPT: Surgical Specimen RECD BY: Yoly Rayo ENTERED: 07/25/24 17:23 SP TYPE: CURTIS OT DR: Leslie Hernandez Tissues: 1 - SKIN BIOPSY(SHAVE/PUNCH) Procedures: SKIN LEVEL 4 Comments: [id number]
[2024-07-25 16:57] LABS: ALT 43 U/L (16-63); AST 45 U/L (15-37); Alkaline Phosphatase 67 U/L (46-116); Anion Gap 10.4 mmol/L (3-11); BUN 16 mg/dL (7-18); Bilirubin, Total 0.79 mg/dL (0.2-1.0); CO2 23.6 mmol/L (21.0-32.0); CREATININE 1.2 mg/dL (0.70-1.30); Calcium 9.6 mg/dL (8.5-10.1); Chloride 107 mmol/L (98-107); Estimated GFR 65.46 (mL/min/1.73m2); Glucose 118 mg/dL (74-106); Potassium 4.5 mmol/L (3.5-5.1); Sodium 141 mmol/L (136-145); Total Protein 7.8 g/dL (6.4-8.2)
[2024-07-25 17:21] LABS: Hemoglobin A1C 6.2 % (<5.7)
== END 2024-07-25 10:56 | disposition home or self-care (01) ==
LOC: NCHCN 10:55
PROVIDERS: PCP Nurse Practitioner Family; Visit Provider Family Medicine
DX: E11.9 Type 2 diabetes mellitus without complications (principal)
CPT/HCPCS: 80053; 83036; 88305

== ENCOUNTER 2024-11-08 08:05 | Outpatient (CLI) | payer MEDICARE, SELFPAY ==
--- NOTE | 2024-11-08 08:00 | RT.EKG_ITS ---
APPROVED REPORT Exam: Resting ECG Reason for Exam: cardiac evaluation Patient Location: O HR:78 bpm ECG Measurements Heart Rate 78 AXIS SD 149 P 56 QRSd 122 QRS 46 QT 394 T 53 QTc 449 Conclusion Sinus rhythm...normal P axis, V-rate 50- 99 IVCD, consider atypical RBBB...QRSd>120mS, terminal axis(90,270)
== END 2024-11-08 08:06 | disposition home or self-care (01) ==
LOC: DI.CARD 08:06
PROVIDERS: Visit Provider Internal Medicine Cardiovascular Disease
DX: I25.10 Atherosclerotic heart disease of native coronary artery without angina pectoris (principal); I10 Essential (primary) hypertension
CPT/HCPCS: 93010

== ENCOUNTER → 2024-11-08 10:46 | Outpatient (BNVA) | payer MEDICARE, SELFPAY | PROVIDERS: Visit Provider Internal Medicine Cardiovascular Disease | DX: I25.10 Atherosclerotic heart disease of native coronary artery without angina pectoris (principal) | CPT/HCPCS: 93005; 99214 ==

== ENCOUNTER 2025-01-28 11:58 | Outpatient (REF) | payer MEDICARE, SELFPAY ==
[2025-01-28 15:52] LABS: Hemoglobin A1C 6.7 % (<5.7)
[2025-01-28 22:31] LABS: PSA, Screening 0.5 ng/mL (<=4.5)
== END 2025-01-28 11:59 | disposition home or self-care (01) ==
LOC: NCHCN 11:58
PROVIDERS: Visit Provider Family Medicine
DX: E11.9 Type 2 diabetes mellitus without complications (principal); Z12.5 Encounter for screening for malignant neoplasm of prostate
CPT/HCPCS: 84153; 83036

== ENCOUNTER 2025-02-11 02:06 | Outpatient (CLI) | payer MEDICARE, SELFPAY ==
--- NOTE | 2025-02-11 | DI.US_ITS ---
Exam(s) US AAA SCREENING EXAM: US AAA SCREENING CLINICAL HISTORY: NICOTINE DEPENDENCE, F17.200 COMPARISON: No exams were available for comparison FINDINGS: Abdominal Aorta: Proximal: 2.5 x 2.6 cm Mid: 2.0 x 2.3 cm Distal: 2.2 x 2.2 cm Iliac's: Right: 1.4 x 1.4 cm Left: 1.3 x 1.4 cm Minimal atherosclerotic disease is seen sonographically. Note is made of increased echogenicity of t he liver suggesting fatty infiltration. IMPRESSION: No evidence of abdominal aortic aneurysm. DATA REPOSITORY:
== END 2025-02-11 02:26 ==
PROVIDERS: PCP Family Medicine; Visit Provider Family Medicine
DX: Z13.6 Encounter for screening for cardiovascular disorders (principal); F17.210 Nicotine dependence, cigarettes, uncomplicated
CPT/HCPCS: 76706

== ENCOUNTER 2025-02-12 02:11 | Outpatient (CLI) | payer MEDICARE, SELFPAY ==
--- NOTE | 2025-02-12 | DI.CTLCSR_ITS ---
Exam(s) CT CHEST LUNG CANCER SCREEN EXAM: CT CHEST LUNG CANCER SCREEN CLINICAL HISTORY: SCREENING FOR LUNG CA,FORMER SMOKER, Z87.891 TECHNIQUE: Imaging Protocol: Axial computed tomography images with coronal and sagittal reformatted images were created and reviewed. Lung Computer Aided Detection (CAD) was utilized. COMPARISON: CT CT CHEST LUNG CANCER SCREEN from 03/06/2020 FINDINGS: Tracheobronchial tree: Patent where visualized. No bronchiectasis. Pulmonary parenchyma: No consolidation or dominant measurable mass. Scarring or atelectasis is seen i n the dependent portions of the lungs. Lung Nodules: None. Mediastinum and Bonita: No dominant adenopathy or fluid collection. The esophagus is unremarkable. Thyroid gland: Unremarkable. Lymph nodes: Unremarkable. Pleura: No effusion or pneumothorax. Heart: The heart is at the upper limits of normal in size. Three vessel coronary artery calcificatio n is present. No pericardial effusion. Aorta: Thoracic aorta non-dilated.Atherosclerotic calcification is present. Upper abdomen: Unremarkable. Soft Tissues: Unremarkable. Bones: Within normal limits. IMPRESSION: No suspicious pulmonary nodules. Lung RADS Cat 1 - Negative: No nodules and definitely benign nodules Lung-RADS 1.0 CATEGORIES: Category 0 - Prior chest CT exam(s) being located for comparison. Category 1 - Annual screening in 12 months. No nodules or definitely benign nodules. Category 2 - Annual screening in 12 months. Benign appearance. Nodules with low likelihood of becomin g active cancer. Category 3 - 6-month follow-up. Probably benign. Short-term follow-up suggested. Nodules with low lik elihood of becoming active cancer. Category 4A - 3-month follow-up and CT/PET if >8 mm in size. Suspicious finding. Findings which requi re additional testing. Category 4B - Findings which require additional testing and tissue sampling. Suspicious finding. Category 4X - Category 3 or 4 nodules with additional features or imaging findings that increases the suspicion of malignancy. Modifier S- Potentially clinically significant finding. (Non lung cancer) RADIATION DOSE DELIVERED: 95.45mGy.cm Total DLP 95.45mGy.cmTotal DLP DATA REPOSITORY: All CT scans at this facility are submitted to the National Radiology Data Registry (NRDR) Dose Index Registry (DIR) with the [employer] (ACR). RADIATION OPTIMIZATION: All CT scans at this facility use at least one of these dose optimization te chniques: automated exposure control; mA and/or kV adjustment per patient size (includes targeted exa ms where dose is matched to clinical indication); or iterative reconstruction.
== END 2025-02-12 02:31 ==
LOC: DI 02:11
PROVIDERS: PCP Family Medicine; Visit Provider Family Medicine
DX: Z87.891 Personal history of nicotine dependence (principal); Z12.2 Encounter for screening for malignant neoplasm of respiratory organs
CPT/HCPCS: 71271

== ENCOUNTER 2025-02-19 11:17 | Outpatient (CLI) | payer MEDICARE, SELFPAY ==
--- NOTE | 2025-02-19 10:45 | DI.RAD_ITS ---
Exam(s) XR SHOULDER LT COMPLETE 2+V EXAM: XR SHOULDER LT COMPLETE 2+V CLINICAL HISTORY: LEFT SHOULDER PAIN. TECHNIQUE: 2D digital imaging was performed. Three views. COMPARISON: None FINDINGS: BONES: No acute fracture is present. No bony destructive lesion is seen. JOINTS: No dislocation present. There is inferior spurring at the AC joint. Glenohumeral joint spac e is maintained. There is spurring at the margin of the glenoid. There are calcifications noted ant erior to the humeral head, near the lesser tuberosity consistent with calcific tendinosis. SOFT TISSUE: Normal. IMPRESSION: Calcific tendinosis. DATA REPOSITORY: RADIATION DOSE DELIVERED:
--- NOTE | 2025-02-19 11:00 | DI.RAD_ITS ---
Exam(s) XR KNEE LT 3V AP,LAT,POLI EXAM: XR KNEE LT 3V AP,LAT,POLI CLINICAL HISTORY: LEFT KNEE PAIN. TECHNIQUE: 2D digital imaging was performed. Three views. COMPARISON: MR MR KNEE LEFT WO CONTRAST from 02/01/2023 FINDINGS: BONES: No acute fracture is present. No bony destructive lesion is seen. Patellar enthesophytes. Small enthesophyte at tibial tubercle. JOINTS: The knee is normally aligned. No joint effusion is seen. The joint spaces are maintained. Mi nimal periarticular spurring. SOFT TISSUE: Vascular calcifications. IMPRESSION: Minimal degenerative changes. DATA REPOSITORY: RADIATION DOSE DELIVERED:
== END 2025-02-19 11:18 | disposition home or self-care (01) ==
LOC: DIORS 11:17
PROVIDERS: PCP Family Medicine; Visit Provider Student in an Organized Health Care Education/Training Program
DX: M25.512 Pain in left shoulder (principal); M25.562 Pain in left knee; M23.92 Unspecified internal derangement of left knee; M75.102 Unspecified rotator cuff tear or rupture of left shoulder, not specified as traumatic
CPT/HCPCS: 99214; 73562; 73030

== ENCOUNTER 2025-03-14 00:28 | Outpatient (CLI) | payer MEDICARE, SELFPAY ==
--- NOTE | 2025-03-14 09:05 | DI.MRI_ITS ---
Exam(s) MR UPPER JOINT LT WO EXAM: MR UPPER JOINT LT WO CLINICAL HISTORY: L SHOULDER PAIN,lt rotator cuff tear.m75.102 TECHNIQUE: Multiplanar multisequence MRI of the shoulder was performed. COMPARISON: MR MR SHOULDER RIGHT WO CONTRAST from 12/06/2019 CR XR SHOULDER LT COMPLETE 2+V from 02/19/2025 CR XR KNEE LT 3V AP,LAT,POLI from 02/19/2025 FINDINGS: MARROW:There is no evidence of fracture, Hill-Sachs deformity, nor ominous osseous lesions. GLENOHUMERAL JOINT: There are some degenerative changes in the glenohumeral joint. There is no large joint effusion although there is fluid in the medial subcoracoid bursal region with some synovial thickening but no obvious loose intra-articular bodies at this level. There is mild thinning of the articular cartilage. There are no degenerative subarticular cysts in the osseous glenoid. A few the degenerative cysts are noted in the lateral humeral head region at the junction of the head and greater tuberosity. ROTATOR CUFF MECHANISM: AC JOINT/ACROMIUM: There are advanced degenerative changes in the acromioclavicular joint. Also intra-articular fluid in the joint and mild para- articular fluid. This indicates some capsule tearing superiorly in the AC joint in addition to the degenerative changes therein.. There is prominent unders urface osteophyte on the clavicular side of this joint causing impingement upon the supraspinatus.. There is no evidence of os acromiale. Supraspinatus: There is tendinitis signal. One full focus of signal abnormality may be a partial-thickness tear. There does not appear to be a full-thickness tear but there is some mild fluid in the subacromial-subdeltoid bursa. There is no muscle belly atrophy. Infraspinatus: Mild insertional tendinitis signal. No high-grade tear. No muscle atrophy. Teres Minor: Intact. No evidence of tear nor muscle atrophy. Subscapularis/anterior cuff: There are few hypointense foci in the inferior aspect of the multipennate insertional fibers consistent with calcific tendinosis and these calcifications corresponding to the calcifications which are seen anteriorly on the axial view of the recent plain films of 02/19/2025. There is some tendinitis signal anterior to the lesser tuberosity insertion. No full-thickness tear evident. BICEPS TENDON: The biceps tendon is located within the intertubercular groove but exhibits some split tearing at this level. It also exhibits some abnormal signal and split tearing with in the intra-articular aspect. LABRUM: There is no signal abnormality in the anterior labrum posterior to the biceps attachment site. The posterior labrum appears intact as does the inferior labrum. There is mild surface signal abnormality in the anterior labrum but no prominent tear. The anteroinferior labrum is intact and without evidence of avulsion. There is no evidence of Bankart lesion. Inferior glenohumeral ligament appears intact. QUADRILATERAL SPACE: No evidence of mass in the region of the axillary nerve and dorsal circumflex humeral vessels. Visualized triceps muscle at this level appears unremarkable. IMPRESSION: 1. There is advanced degenerative change in the acromioclavicular joint with downgoing osteophytes causing impingement upon the rotator cuff mechanism. There are mild degenerative changes in the glenohumeral joint. There are no degenerative subarticular cysts. Small amount of increased joint fluid with some synovial thickening but no obvious loose intra-articular bodies. 2. There is tendinitis signal abnormality in the supraspinatus consistent with tendinitis/tendinosis and there is 1 small focus seen on the sagittal images which may represent a partial-thickness tear. There does not appear to be an obvious full-thickness tear although there does appear to be some fluid in the subacromial-subdeltoid bursa. Either very small full-thickness tear or tendinitis/tendinosis/partial tear with overlying bursitis. 3. There is calcific tendinosis and tendinitis in the anterior rotator cuff- subscapularis. No full-thickness tear. 4. Mild insertional tendinitis of the infraspinatus. No high-grade tear 5. There is split tearing of the mid biceps tendon within the intertubercular groove as well as within the intra-articular aspect. It does not appear to be avulsed from the anterosuperior labrum. The biceps tendon is also not displaced from the intertubercular groove. 6. Mild surface irregularity in the anterior labrum which may be a labral small tear at this level. Remainder of the labrum appears intact and there is no evidence of paralabral cyst. DATA REPOSITORY:
== END 2025-03-14 00:48 ==
LOC: DI 00:28
PROVIDERS: PCP Family Medicine; Visit Provider Student in an Organized Health Care Education/Training Program
DX: M75.122 Complete rotator cuff tear or rupture of left shoulder, not specified as traumatic (principal)
CPT/HCPCS: 73221

== ENCOUNTER → 2025-03-19 08:41 | Outpatient (BNVA) | payer MEDICARE, SELFPAY | PROVIDERS: PCP Family Medicine; Referring Provider Family Medicine; Visit Provider Student in an Organized Health Care Education/Training Program | DX: M75.102 Unspecified rotator cuff tear or rupture of left shoulder, not specified as traumatic (principal) | CPT/HCPCS: 20610; J1010 ==

== ENCOUNTER → 2025-05-28 08:47 | Outpatient (BNVA) | payer MEDICARE, SELFPAY | PROVIDERS: PCP Family Medicine; Referring Provider Family Medicine; Visit Provider Student in an Organized Health Care Education/Training Program | DX: M75.102 Unspecified rotator cuff tear or rupture of left shoulder, not specified as traumatic (principal); M67.922 Unspecified disorder of synovium and tendon, left upper arm; M19.012 Primary osteoarthritis, left shoulder | CPT/HCPCS: 99213 ==

== ENCOUNTER 2025-06-03 13:33 | Outpatient (CLI) | payer MEDICARE, SELFPAY ==
--- NOTE | 2025-06-03 06:45 | DI.CT_ITS ---
Exam(s) CT UPPER EXTREMITY LT WO EXAM: CT UPPER EXTREMITY LT WO CLINICAL HISTORY: SURGICAL PLANNING,lt rotator cuff tear,m75.102 TECHNIQUE: Imaging Protocol: Axial computed tomography images with coronal and sagittal reformatted images were created and reviewed. CONTRAST MATERIAL: Intravenous: Omnipaque 350 Contrast volume:structured data in ml Contrast route:IV - COMPARISON: CR XR SHOULDER LT COMPLETE 2+V from 02/19/2025 FINDINGS: Bones: There is no evidence of fracture or dislocation. Bony alignment is satisfactory. No cellulitic or osteomyelitic changes are identified. The AC joint shows spurring and degenerative cysts. The glenohumeral joint shows mild joint space narrowing and mild spurring. No lytic or sclerotic lesions are identified. Soft Tissues: Calcifications anterior to the humeral head, consistent with calcific tendinosis. IMPRESSION: Calcific tendinosis. Degenerative changes of the AC joint and glenohumeral joint. RADIATION DOSE DELIVERED: 377.74mGy.cm Total DLP DATA REPOSITORY: All CT scans at this facility are submitted to the National Radiology Data Registry (NRDR) Dose Index Registry (DIR) with the [employer] (ACR). RADIATION OPTIMIZATION: All CT scans at this facility use at least one of these dose optimization techniques: automated exposure control; mA and/or kV adjustment per patient size (includes targeted exams where dose is matched to clinical indication); or iterative reconstruction.
== END 2025-06-03 13:53 ==
LOC: DI 13:34
PROVIDERS: PCP Family Medicine; Visit Provider Student in an Organized Health Care Education/Training Program
DX: M75.32 Calcific tendinitis of left shoulder (principal)
CPT/HCPCS: 73200

== ENCOUNTER → 2025-06-10 09:20 | Outpatient (BNVA) | payer MEDICARE, SELFPAY | PROVIDERS: PCP Family Medicine; Referring Provider Family Medicine; Visit Provider Student in an Organized Health Care Education/Training Program | DX: M12.812 Other specific arthropathies, not elsewhere classified, left shoulder (principal) | CPT/HCPCS: 99214 ==

== ENCOUNTER 2025-07-03 05:56 | Day surgery (SDC) | payer MEDICARE, SELFPAY ==
[2025-07-03] VITALS (49 sets, daily range): BP systolic 113–205; BP diastolic 55–91; PULSE 54–73; RESP 11–25; TEMP 35.7–36.7; O2SAT 89–97; BMI 40.0
--- NOTE | 2025-07-03 06:23 | W.ANESPRE ---
General Info Date of Service Date Performed: 07/03/25 Height: 5 ft 8 in Weight: 119.4 kg Body Mass Index (BMI): 40.0 Surgical Procedure: Operation Date: 07/03/25 07:40 Proposed Procedure Side Surgeon p Shoulder Reverse Total Arthroplasty, Biceps Tenodesis, Distal Clavicle Excision Left Nic Roger MD Meds Allergies and Home Medications Allergies Allergy/AdvReac Type Severity Reaction Status Date / Time No Known Allergies Allergy Verified 07/03/25 06:01 Home Medication ?Medication ?Instructions ?Recorded aspirin 81 mg chewable tablet 81 mg PO DAILY 05/02/18 atorvastatin 80 mg tablet 80 mg PO DAILY 05/02/18 metoprolol succinate 100 mg 100 mg PO DAILY 05/02/18 tablet,extended release 24 hr metformin 500 mg tablet,extended 500 mg PO QAM 12/12/18 release 24hr (osmotic) nitroglycerin 0.4 mg sublingual 0.4 mg sublingual ONCE #90 tab-caps 08/15/19 tablet (Nitrostat) naproxen 250 mg tablet 250 - 500 mg (1 - 2 x 250 mg) PO 09/09/21 BID PRN Moderate pain or swelling #40 tabs isosorbide mononitrate 30 mg 30 mg PO DAILY 11/04/22 tablet,extended release 24 hr albuterol sulfate 90 mcg/actuation 2 puff inhalation Q6H PRN 02/13/25 aerosol inhaler amlodipine 2.5 mg tablet 2.5 mg PO DAILY 02/13/25 lisinopril 5 mg tablet 5 mg PO DAILY 02/13/25 Current Visit Medications: Current Medications Generic Name Dose Route Start Last Admin Trade Name Alessandroq PRN Reason Stop Dose Admin Ringer's Solution 1,000 mls @ 30 mls/hr 07/03/25 06:00 IV 07/03/25 23:59 INFUSION SHERMAN Cefazolin Sodium 3,000 mg/ 100 mls @ 200 mls/hr 07/03/25 06:00 Sodium Chloride IV 07/03/25 23:59 PREOP SHERMAN Tranexamic Acid/Sodium Chloride 1,000 mg in 100 mls @ 600 mls/hr 07/03/25 06:00 IVPB 07/03/25 23:59 PREOP SHERMAN IV Miscellaneous Supplies 1 each 07/03/25 06:00 Iv Access IV 07/03/25 23:59 DIRECTED SHERMAN Sodium Chloride 0 ml 07/03/25 06:00 Normal Saline Flush 10 Ml Syr IV 07/03/25 23:59 PRN PRN Sodium Chloride 0 ml 07/03/25 06:00 Normal Saline 10 Ml Vial IJ 07/03/25 23:59 DIRECTED PRN Sterile Water 0 ml 07/03/25 06:00 Water,Injection,Sterile 10 Ml Vial IJ 07/03/25 23:59 DIRECTED PRN PFSH Active Problems Active Problems: Problem Status Onset Code Rotator cuff arthropathy of left shoulder Acute M12.812 Arthritis of left glenohumeral joint Acute M19.012 Tendinopathy of left biceps tendon Acute M67.922 Rotator cuff tear, left Acute ~01/13/25 M75.102 Internal derangement of left knee Acute ~01/14/25 M23.92 No-show for appointment Acute Z91.199 COVID-19 Acute U07.1 Chondromalacia of right knee Acute M94.261 Acute medial meniscus tear of right knee Acute ~04/2021 S83.241A Lumbosacral radiculopathy Acute M54.17 Lumbosacral spondylosis without myelopathy Acute M47.817 UTI (urinary tract infection) Acute N39.0 Unstable angina Acute I20.0 Hyperlipidemia Acute E78.5 Hypertension Acute I10 Coronary atherosclerosis Acute I25.10 Medical History Medical History Back pain with history of spinal surgery Diabetes mellitus Arthrofibrosis of knee joint HTN (hypertension) COPD (chronic obstructive pulmonary disease) Former smoker Sleep disorder Laceration of finger Hyperlipidemia CAD (coronary artery disease) Low back pain Hx of non-ST elevation myocardial infarction (NSTEMI) 2016 History of angina Hx of gastric ulcer Surgical History Surgical History Rotator cuff arthropathy of right shoulder Tobacco Smoking/Tobacco Use Status: Former Tobacco Use Passive smoking exposure: No Alcohol Alcohol Intake: current Alcohol intake frequency: a few times a month Alcohol type: hard liquor Substance Use Substance use: Never Substance use type: does not use Imaging and Studies Imaging and Studies Study information below may be from another EMR and interpreted by another provider. Please see original notes in EMR for more complete details. EKG Summary: 11-08-24 Exam: Resting ECG Reason for Exam: cardiac evaluation Patient Location: O HR:78 bpm ECG Measurements Heart Rate 78 AXIS [place] 149 P 56 QRSd 122 QRS 46 QT 394 T53 QTc 449 Conclusion Sinus rhythm...normal P axis, V-rate 50- 99 IVCD, consider atypical RBBB...QRSd>120mS, terminal axis(90,270) Stress Test Summary: 07-19-22 Exam: Pharmacologic Patient Location: Out-Patient Room/Bed: Stress Nurse: Citlalli Clayton RN Ordering Provider:KRYSTEN OMALLEY, Contact Number: [phone] BMI: 39.68 Baseline Rhythm: Sinus Rhythm Comment: T wave inversion in aVL Indications: Chest Pain, CP Radiating to arm, Relieved w/ nitro, HX of NSTEMI Medical History Medical History: Coronary atherosclerosis, unstable angina, HTN, HLD, DM, former smoker, NSTEMI, COPD, obesity Cardiac Medications: Nitro, Metoprolol Succinate, Metformin, Lisinopril, Atorvastatin, ASA, Amlodipine, Albuterol Sulfate Allergies: NKA Cardiac Risk Factors: HTN, HLD, CVD, DM, Previous Cardiac Procedures: Hx NSTEMI, cardiac cath w/ stents 2015 Pretest Chest Pain Characteristics: None Exercise History: Sedentary Physical Disabilities: leg discomfort, back pain, decreased endurance Lung Sounds: LCTA Heart Sounds: Regular Stress Test Details Test: Pharmacologic stress was paired with low level exercise. Reason for pharmacologic stress test: physical limitation. Nuclear Acquisition: Rest Tc-99m/Stress Tc-99m 1 day Rest Isotope: Tc-99m Sestamibi. Dose: 12 ml Date: 07/19/2022 Injection Time: 11:10 Stress Isotope: Tc-99m Sestamibi. Dose: 37.5 ml Date: 07/19/2022 Injection Time: 13:22 HR Resting HR Supine: 64 bpmMax Heart Rate (APMHR): 153.090202 bpm Resting HR Standin bpmTarget HR (85% APMHR): 130.392641 bpm Max HR Achieved: 102 bpm % of APMHR: 66.67 Recovery HR: 76 bpm BP Resting BP Supine: 140/84 mmHg Resting BP Standin/80 mmHg Max BP: 168/72 mmHg Recovery BP: 162/80 mmHg ECG Resting ECG: Sinus Rhythm Comment: T wave inversion in aVL Stress ECG: Sinus Rhythm ST Change: No significant ST segment changes noted Arrhythmia: None Recovery ECG: Sinus Rhythm Recovery ST Change: No significant ST segment changes noted Recovery Arrhythmia: Rare PVC Comment: T wave inversion, aVL Clinical Stress Symptoms: shortness of breath, headache, dizziness Rate Pressure Product: 36793 Stress ECG Conclusion 1. Resting electrocardiogram showed LVH voltage, incomplete right bundle branch block 2. Patient underwent testing using combination of low-level exercise and regadenoson 3. Peak heart rate achieved was 66% of maximal predicted for age 4. Electrocardiographic portion of the test was nondiagnostic due to inadequate heart rate 5. See MPI report Stress Test Summary [id number]/84 [id number]/80 1 min post Lexiscan [id number]/78shortness of breath 3 min post Lexiscan [id number]/72Headache, shortness of breath resolved 6 min post Lexiscan [id number]/80HA resolved Patient did a walking Lexiscan. The patient walked at 1.3 mph while Lexiscan was injected. Patient walked for 2 minutes post injection and then returned to the stretcher. Pt verbalized some dizziness and headche after treadmill stopped and as he returned to the stretcher. All symptoms resolved within a minute of rest on the stretcher. MPI Conclusion There is mild posterior lateral ischemia, no definite infarction EF is 46%. 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 Radiologist Interpretation by: Sourav Goodwin MD Interpretation Date/Time: 07/21/2022 08:36:25 2-1-17 mpressions: Abnormal study , ST depressions without angina. Summary: 1. Stress ECG conclusions: The stress ECG is positive. Morrison treadmill score: -3. This score predicts a moderate risk of cardiac events. 2. Stress: The target heart rate was achieved. The heart rate response to stress is normal. There is a normal resting blood pressure with an appropriate response to stress. The patient experienced no chest pain during stress. Exercise capacity is mildly diminished for age. Recommendations: Stress myocardial perfusion imaging should be performed. Indication: (R07.9). History: REASON FOR TESTING: CHEST PAIN WHILE EXCERCISING IN CARDIAC REHAB, ADMITTED TO ED FROM REHAB. MEDICAL HX: PEPTIC ULCER DISEASE, HYPERLIPIDEMIA, HYPERTESION, CAD S/P NON-ST NV IN 07/2016, WITH PCI AND STENTS TO MID LAD AND MID RCA. FAMILY HX: SISTER- NV, HYPERTENSION. 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 EXCERCISE: CARDIAC REHAB 3 DAYS/WEEK Risk factors: Cholesterol: 134mg/dl. HDL: 36mg/dl. LDL: 65mg/dl. Triglycerides: 377mg/dl. ALLERGIES: NKDA MEDICATIONS: METOPROLOL SUCCINATE 100 MG DAILY, LISINOPRIL 2.5 MG DAILY, ISOSORBIDE MONONITRATE CR 30 MG DAILY, FUROSEMIDE 20 MG DAILY, FLOVENT, CLOPIDOGREL 75 MG DAILY, ATORVASTATIN 80 MG DAILY, ASPIRIN 81 MG DAILY. Protocol: Giuseppe protocol. Baseline ECG: LAST EKG 10/28/16- SR, RBBB TODAY'S EKG- SINUS RHYTHM W/ RBBB. Normal sinus rhythm. Stress protocol: + +---+ + !Stage !HR !BP (mmHg) ! + +---+ + !Baseline supine !63 !136/88 (104) ! + +---+ + !Baseline standing !66 !138/84 (102) ! + +---+ + !Stage I; 1.7mph, 10degrees; 3 min !111!150/88 (109) ! + +---+ + !Stage II; 2.5mph, 12degrees; 3 min!129!170/100 (123)! + +---+ + !Immediate post stress !140!190/92 (125) ! + +---+ + !Recovery; 3 min !91 !210/90 (130) ! + +---+ + !Recovery; 6 min !82 !170/88 (115) ! + +---+ + !Recovery; 9 min !83 !152/91 (111) ! + +---+ + !Recovery; 12 min !83 !148/90 (109) ! + +---+ + * Stress results: The target heart rate was achieved. The heart rate response to stress is normal. There is a normal resting blood pressure with an appropriate response to stress. The rate-pressure product for the peak heart rate and blood pressure was 80246kd Hg/min. The patient experienced no chest pain during stress. Exercise capacity is mildly diminished for age. Stress ECG: TESTING ENDED AT 7 MINS 19 SECS DUE TO FATIGUE. MAX HR 143, 89% OF TARGET. BLOOD PRESSURE RESPONSE: HYPERTENSIVE BLOOD PRESSURE RESPONSE METS:10.16 ECTOPY: FREQUENT PVC'S AT MAS. EFFORT, RARE IN RECOVERY. ANGINA: NO REPORTED CHEST PAIN OR PRESSURE ISCHEMIA: ISCHEMIC CHANGES NOTED IN LEADS II,III, AVF AND V5 AND V6 IN STAGE 2. IN STAGE 3, LIMB LEADS V3-V6 WERE SHOWING ISCHEMIC CHANGES. HTESE DID RETURN TO BASELIN BY 12 MINS OF RECOVERY. FUNCTIONA CAPACITY: MILDLY DIMINISHED CAPACITY. The stress ECG is positive. Stress ECG change: horizontal depression. Severity: 1.5-2.0mm. In lead groups: V4, V5 and V6. In individual leads:V3. Morrison treadmill score: -3. This score predicts a moderate risk of cardiac events. Pulmonary Function Summary: Date of service: 12/31/20 Time of Service: 01:10 Pulmonary Function Test Result Interpretation Spirometry: Mild obstructive airways disease, no bronchodilator testing was carried out Lung Volumes: No evidence of restriction Diffusion Capacity: Moderately reduced, mildly reduced when corrected to alveolar volume Airway Pressure: Normal Impression Mild obstructive airways disease, no bronchodilator testing was carried out, this is associated with moderate diffusion defect Clinical Correlation therefore is recommended. Anesthesia Assessment and Plan Anesthesia History Personal History: No History of Anesthesia Complications Family History: No Family History of Anesthesia Complications Exercise Tolerance Exercise Tolerance: Metabolic Equivalents>4 Pertinent Negatives Pertinent Negatives: No Symptoms of GERD and No History of CVA/TIA Cardiac & Pulmonary Exam Cardiac Exam: Normal S1/S2 Heart Sounds Pulmonary Exam: Clear Bilateral Breath Sounds Implantable Cardiac Device Does patient have a Pacemaker or an ICD?: No Airway Exam Known Difficult Airway: No Mallampati Class: 3 Mouth Opening: Normal (> 3cm) Thyromental Distance: Greater than 3 cm Neck Range of Motion: Full ROM Neck Circumference: Thick Teeth Condition: Generalized Poor Dentition and Edentulous Airway Comments: Left bottom broken ASA Classification ASA Score: ASA 3 Emergency Case?: No NPO Status NPO Status: NPO Clears >2 hours, Solids >8 hours Anesthesia Plan Resuscitation Status: Full Code Anesthesia Technique: General Anesthesia Airway Planned: Endotracheal Tube Pain Management: Surgeon and patient request nerve block Monitors Used: Standard Monitors, Arterial Line and SedLine
[2025-07-03] MEDS: Lactated Ringers 1,000 ML 30 ML IV (06:44)
--- NOTE | 2025-07-03 07:15 | W.PM.OP ---
Operative Note Operative Note PRE-OP DIAGNOSIS: Left: 1. Rotator cuff arthropathy 2. Long head of the biceps tendinopathy 3. AC joint arthritis POST-OP DIAGNOSIS: same PROCEDURE: Left: 1. Reverse total shoulder arthroplasty, CPT # 46693 2. Open biceps tenodesis, CPT # 38394 3. Open distal clavicle excision, CPT #21336 The clinical medical assistant was medically required as this procedure involves retraction, protection of neurovascular structures, and manipulation of multiple instruments and implants at the same time, which cannot be done without a skilled clinical medical assistant. SURGEON: Nic Roger ACADEMIC SUPPORT ASSISTANT: Dustin Saab ANESTHESIA TYPE: Local By Surgeon, General LMA/ETT and Primary Nerve Block Refer to Anesthesia Record ESTIMATED BLOOD LOSS: 200 COMPLICATIONS: None Patient was transported to: PACU Patient's condition: stable Implants: [employer] modular glenoid system baseplate 24 mm + 2 mm lateralized [employer] modular glenoid system central post 30 mm [employer] modular glenoid system peripheral locking screws 36 mm inferior, 36 mm superior, 20 mm posterior, 20 mm anterior [employer] modular glenoid system glenosphere 42 +4 mm lateralized [employer] humeral stem 135 degrees size 10 [employer] suture cup size 42 posterior offset [employer] humeral insert size 42 +3 mm constrained Indications: Please see complete medical record for details. Findings: Significant long head biceps tenosynovitis, anterior capsular scarring and moderate contracture, subscapularis partial tearing and calcific tendinitis, supraspinatus thinning and partial tearing, intact infraspinatus. Moderately significant glenohumeral and labral degenerative changes. Procedure Description: In the operating room, general anesthesia was induced. The patient was positioned beachchair on the operating room table. All bony prominences were well-padded. Preoperative antibiotics were administered. The shoulder was prepped and draped in the usual sterile fashion for shoulder arthroplasty. The correct patient, procedure, and side of the procedure were all verified prior to incision. The deltopectoral approach was preinjected with 0.25% bupivacaine containing epinephrine and taken to the anterior shoulder. Care was taken to bluntly dissect the interval between the deltoid and pectoralis major muscles and to identify the cephalic vein within its fat stripe. The the vein was mobilized laterally. Subdeltoid space and conjoined tendon were freed of adhesions. The long head of the biceps tendon was identified just lateral to the lesser tuberosity. The uppermost margin of the pectoralis major tendon was released from the proximal humerus. The long head of the biceps tendon was tenodesed in situ using SutureTape in a [id number] fashion securing it superior margin the pectoralis major tendon. The biceps tendon was amputated and followed proximally to identify the rotator interval. Subscapularis tenotomy was done after debriding the mid to lateral portion of calcific tendinitis. The supraspinous infraspinous were identified and the leading edge of the supraspinatus debrided of partial tearing and for surgical exposure, which was much more challenging than usual given the morbid obesity and large chest and shoulder size/musculature. Appropriate coagulation was achieved especially interiorly. The anatomic neck was cut using an oscillating saw with the humeral head bone brought back table in case there was a need for future bone grafting. Working underneath the superior aspect of the incision, the distal clavicle at the AC joint was exposed superiorly with retractors placed at the anterior and posterior margins around the end of the bone and a saw used to remove about the distalmost 1 cm. Rasps were then used to smooth the edges and confirm no remnant disc capsule or bone prominences. The proximal humerus was delivered from the wound with adduction and external rotation. The proximal humeral protection plate was used to provisionally confirm suture cup and glenosphere size. Reamers were started appropriately posterior to the bicipital groove taking care to maintain in line approach with the humeral canal. Sequential reaming was done from size 5 up to size 10. Next, the broaches were sequentially used to open the proximal humerus starting with a size 5 and going up to size 11 and sunk to the appropriate depth while maintaining approximately 25 degrees retroversion. There was good metaphyseal fit but slightly shallow and rotational control of the proximal humerus with this size. The posterior offset guide was used to ream for the suture cup. Attention was then turned to the glenoid and retractors were placed and a circumferential release performed using the long head of the biceps remnant to remove soft tissue about the glenoid rim. Care was taken inferiorly to work on bone only between 5 and 7:00 o'clock and bluntly elevate tissues inferiorly. The VIP guide was placed on the glenoid and used to confirm placement and trajectory of the central guidepin. The guidepin was inserted and advanced just through the far cortex ensuring adequate central fixation length. The glenoid was prepared according to pig conveyor operator specifications for a standard baseplate and central post. The baseplate was impacted onto the glenoid surface. Lateralized chosen to accommodate for the inferior glenoid bone removed. The locking guide was then used to drill and place appropriately lengthed inferior, superior, anterior, and posterior screws. The [id number] reamer was used to confirm adequate peripheral reaming. The glenosphere was applied with the german teacher and then impacted to engage the Holliday taper. It was then locked with appropriate countersinking of the setscrew. The glenosphere was inspected and found to have good fit, appropriate positioning, and no soft tissue or bony impingement. Attention was then turned back to the proximal humerus. The humeral trial cup was connected. Trialing was commenced with +3 mm liner. There was too much tension for reduction so the size 11 mm trial stem was removed and the size 10 stem placed a few millimeters deeper at a nice level and the connector and suture cover reamer were used with better seating into the proximal humerus. +3 mm liner was connected again and the shoulder was reduced and taken through range of motion. There was excellent stability and appropriate tension on the deltoid and conjoined tension. The trial components were removed from the proximal humerus. The wound was copiously irrigated with normal saline. The the proximal humeral stem and suture cup were assembled and brought over the proximal humerus. A small amount of vancomycin powder was distributed in the proximal humerus. The humeral component and suture cup were impacted into place. The trial liner was added, and the shoulder was reduced and range of motion, stability, and tension confirmed to be appropriate. The final liner was then connected, and range of motion, stability, and tension confirmed. Constrained chosen due to lack of subscapularis for repair. The shoulder was copiously irrigated with Betadine and normal saline. Vancomycin powder was distributed deeply about the shoulder and through subcutaneous tissues. 0 Vicryl was used to close deep fascia and tissue over the distal clavicle excision. The deltopectoral interval was approximated with 2-0 Monocryl burying the cephalic vein. Subcutaneous tissue was irrigated then closed using 2-0 Monocryl in a buried interrupted fashion. Skin was closed using 3-0 Monocryl in a buried subcuticular fashion. Skin glue was applied to the incision. A silver impregnated bandage was placed over the incision. The extremity was placed into a shoulder immobilizer. The patient awoke from anesthesia without complication and was taken to the recovery room in stable condition. Date of Procedure: 07/03/25
--- NOTE | 2025-07-03 07:59 | W.ANESVAS ---
Arterial Line Placement Date Performed: 07/03/25 Procedure Time: 07:57 Procedure Location: Operating Room Requesting Provider: Lucero Correa Timeout Performed: Yes Sedation Given (Indicate Dose Given): No Sedation given Patient Mental Status: Performed under general anesthesia Sterility: Hand Hygiene, Surgical Cap, Surgical Mask, Sterile Gloves, Sterile Drape/Sheet and Chlorhexidine Laterality: Right Insertion Site: Radial Arterial Line Catheter: 20G Arrow Arterial Line Procedure: Vessel accessed with catheter over needle, Guidewire placed with ease and Catheter placed without resistance Dressing: Tegaderm Applied Ultrasound: Sterile probe cover and gel used Ultrasound Image Saved?: No Number of Attempts (See previous attempts in note section): 1 Procedure Tolerated: No Complications Procedure Outcome: Successful Performed By: Princess Maharaj Supervised By: Jordan Huynh
[2025-07-03] MEDS: ceFAZolin 3,000 MG in Normal Saline 100 ML 200 MG IV (08:00)
[2025-07-03] MEDS: TRANEXAMIC ACID/SOD. CHL. 1,000 MG/100 ML BAG 600 MG IVPB (08:10)
--- NOTE | 2025-07-03 08:43 | W.ANESNERVE ---
Nerve Block Single Injection Procedure Date and Time Date Performed: 07/03/25 Procedure Start: 07:25 Location Where Procedure Performed Procedure Location: Day Surgery Unit Reason Performed: Postoperative Analgesia Requesting Provider: Nic Roger Timeout Performed Timeout Performed: Yes Monitoring Used Blood Pressure, SpO2 and See EMR for corresponding vital signs Sterility Sterility: Hand Hygiene, Surgical Cap, Surgical Mask, Sterile Gloves and Chlorhexidine Sedation Given During Procedure Sedation Given (Indicate Dose Given): No Sedation given Patient Mental Status Patient Mental Status: Awake Nerve Block 1st Nerve Block: Laterality: Left Block Type: Interscalene Ultrasound Image Saved?: Yes Needle / Catheter Used: 100mm SonoPlex II Local Anesthetic Bolus (Indicate Dose Given): Lidocaine used for local infiltration of skin, Bupivacaine 0.5% Dose:: 10ml and Exparel Dose:: 10ml Additives (Indicate Dose Given): None Ultrasound: Sterile probe cover and gel used Nerve Stimulator: Supplement to Ultrasound use and No twitch or parasthesia noted < 0.5 mA (0.8) Paresthesia: Left (withdrew block needle and initiated at new location. symptoms resolved) Paresthesia Duration: Transient Procedure Tolerated: No Complications and Patient tolerated well Procedure Outcome: Successful Procedure Comment: Brien NerveGuard utilized Performed By: Princess Maharaj Supervised By: Lucero Correa
[2025-07-03] MEDS: Bupivacaine 0.25% Pres-Free W/EPI 30 ML VIAL (08:57)
[2025-07-03] MEDS: Vancomycin 1,000 MG VIAL 1000 MG (08:57)
--- NOTE | 2025-07-03 11:00 | DI.RAD_ITS ---
Exam(s) XR SHOULDER LT COMPLETE 2+V EXAM: XR SHOULDER LT COMPLETE 2+V CLINICAL HISTORY: Shoulder Arthritis. TECHNIQUE: 2D digital imaging was performed. COMPARISON: CR XR SHOULDER LT COMPLETE 2+V from 02/19/2025 FINDINGS: Two postop views There is satisfactory position alignment of the components of the newly placed left shoulder reverse prosthesis. No fracture or loosening evident. IMPRESSION: Satisfactory postop appearance. DATA REPOSITORY: RADIATION DOSE DELIVERED:
--- NOTE | 2025-07-03 11:29 | W.PM.DSUDISC ---
Date of service: 07/03/25 Discharge Plan Disposition Patient Disposition: Home Condition: Stable Discharge Details Attending Provider: Nic Roger Primary Care Provider: Nikkie Turner V Home Meds and New Rx's Prescriptions: New naproxen 250 mg tablet 250 mg PO BID PRN (Reason: Moderate pain) Qty: 25 0RF tramadol 50 mg tablet 50 mg PO TID PRNQty: 18 0RF Continued nitroglycerin [Nitrostat] 0.4 mg tablet, sublingual 0.4 mg Sublingual ONCE Qty: 90 0RF isosorbide mononitrate 30 mg tablet extended release 24 hr 30 mg PO DAILY atorvastatin 80 MG tablet 80 mg PO DAILY metoprolol succinate 100 MG tablet extended release 24 hr 100 mg PO DAILY aspirin 81 MG tablet,chewable 81 mg PO DAILY amlodipine 2.5 mg tablet 2.5 mg PO DAILY lisinopril 5 mg tablet 5 mg PO DAILY albuterol sulfate 90 mcg/actuation HFA aerosol inhaler 2 puff inhalation Q6H PRN metformin 500 mg Tablet Extended Release 24hr 500 mg PO QAM naproxen 250 mg tablet 250 - 500 mg PO BID PRN (Reason: Moderate pain or swelling) Qty: 40 0RF Discharge Instructions Additional Instructions: Surgery: Left reverse total shoulder arthroplasty (constrained liner) with biceps tenodesis and distal clavicle excision 07/03/25 Activity: Do not lift anything heavier than a coffee. You should keep your arm at your side in a relatively neutral position at all times except for gentle range of motion exercises, physical therapy, and essential activities. You should use the sling whenever you are out of the house. At home it is best to remove the sling and rest the arm on a pillow at your side or support the operative side with your other hand. A physical therapy prescription will be sent electronically to start in about 3 weeks. STANDARD Reverse TSA Protocol. Prescriptions: Naproxen 250 mg take 1 every 12 hours with a meal as needed for moderate pain Tramadol 50 mg take 1 every 8 hours as needed for severe pain You may use [id number] Tylenol (acetaminophen) as needed for mild pain. These pain medications may be taken all at once or in different combinations as needed. Also, recommend Colace (docusate) as a stool softener as surgery and pain medicine cause constipation. You may try [id number] diphenhydramine (Benadryl) 25-50 mg nightly as a sleep aid Dressings: Leave dressing in place until follow-up. Keep clean and dry at all times. No showers please. Follow-up: 10-[address] Roger You may take off the leg compression stockings this evening at home. You may also leave them on a few days longer if you have a history of leg swelling or edema. Please call the office during business hours with any questions or concerns. Let us know right away if you develop any redness, drainage, fevers, chest pain, or trouble breathing. Do not drink alcohol or drive for at least 24 hours after anesthesia. Discharge Orders Discharge Orders: Discharge Order (Routine); Ordered 07/03/25 Ordered By: Dustin Saab DS: Diagnosis Discharge Diagnosis (1) Rotator cuff arthropathy of left shoulder: Status: Acute (2) Arthritis of left glenohumeral joint: Status: Acute (3) Tendinopathy of left biceps tendon: Status: Acute
[2025-07-03] MEDS: ceFAZolin 2 GM/50 ML BAG IVPB (12:16)
[2025-07-03] MEDS: fentaNYL 100 MCG/2 ML VIAL IVP ×2 (12:21→12:33)
--- NOTE | 2025-07-03 13:31 | W.ANESPOSTOP ---
Postoperative Evaluation Date, Time and Location Date Performed: 07/03/25 Time Performed: 13:31 Patient Location: Day Surgery Unit Vital Signs Most Recent Imported Vital Signs: Most Recent Vital Signs Temp Pulse Resp BP Pulse Ox 35.7 C L 60 12 128/65 94 07/03/25 13:01 07/03/25 13:01 07/03/25 13:01 07/03/25 13:01 07/03/25 13:01 Pain Score Most Recent Pain Score: Most Recent Pain Score Pain Level 7 07/03/25 12:30 Assessment Mental Status: Awake (Alert & Oriented to Patient Baseline) Airway and Respiratory Function: Patent airway with normal (patient baseline) respiratory exam Cardiovascular Function: Hemodynamically Stable Hydration Status: Adequately Hydrated Nausea & Vomiting: No Nausea or Vomiting Pain: Pt. Denies Any Pain Peripheral Nerve Block: Regional nerve block not resolved at time of post operative discharge
== END 2025-07-03 14:41 | disposition home or self-care (01) ==
PROVIDERS: PCP Family Medicine; Visit Provider Student in an Organized Health Care Education/Training Program
PROC: (CPT 23472; principal; 2025-07-03 07:30)
DX: M12.812 Other specific arthropathies, not elsewhere classified, left shoulder (principal); M75.22 Bicipital tendinitis, left shoulder; G89.18 Other acute postprocedural pain
CPT/HCPCS: 23472; 23430; 23120; C1713; 64415; 73030; J0131; J0665; J0666; J0690; J1100; J1885; J2003; J2371; J2405; J2704; J3010; J3373

== ENCOUNTER 2025-07-15 13:51 | Outpatient (CLI) | payer MEDICARE, SELFPAY ==
--- NOTE | 2025-07-15 13:59 | DI.RAD_ITS ---
Exam(s) XR SHOULDER LT COMPLETE 2+V EXAM: XR SHOULDER LT COMPLETE 2+V CLINICAL HISTORY: F/U LEFT RTSA. TECHNIQUE: 2D digital imaging was performed. Three views. COMPARISON: CR XR SHOULDER LT COMPLETE 2+V from 07/03/2025 FINDINGS: BONES: No acute fracture is present. No bony destructive lesion is seen. Resection of distal clavicle. JOINTS: No dislocation present. Stable alignment shoulder prosthesis. SOFT TISSUE: Normal residual postsurgical air in the soft tissue. IMPRESSION: Stable appearance of shoulder prosthesis. DATA REPOSITORY: RADIATION DOSE DELIVERED:
== END 2025-07-15 13:52 | disposition home or self-care (01) ==
PROVIDERS: PCP Family Medicine; Referring Provider Family Medicine; Visit Provider Student in an Organized Health Care Education/Training Program
DX: Z47.1 Aftercare following joint replacement surgery (principal); M19.012 Primary osteoarthritis, left shoulder
CPT/HCPCS: 99024; 73030

== ENCOUNTER → 2025-07-16 13:38 | Outpatient (BNVA) | payer MEDICARE, SELFPAY | PROVIDERS: PCP Family Medicine; Referring Provider Family Medicine; Visit Provider Student in an Organized Health Care Education/Training Program | DX: Z47.1 Aftercare following joint replacement surgery (principal); Z96.612 Presence of left artificial shoulder joint | CPT/HCPCS: 99024 ==

== ENCOUNTER → 2025-09-02 09:34 | Outpatient (BNVA) | payer MEDICARE, SELFPAY | PROVIDERS: PCP Family Medicine; Referring Provider Family Medicine; Visit Provider Student in an Organized Health Care Education/Training Program | DX: Z47.1 Aftercare following joint replacement surgery (principal); M12.812 Other specific arthropathies, not elsewhere classified, left shoulder | CPT/HCPCS: 99024 ==